=== PATIENT | male | born 1980 | race Caucasian/White ===

== ENCOUNTER 2016-05-12 02:36 | Inpatient (IN) | payer MEDICAID ==
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
[2016-05-12] MEDS ORDERED: ZIPRASIDONE 20 MG VIAL IM PRN (08:01)
[2016-05-12] MEDS ORDERED: MAG HYDROX/AL HYDROX/SIMETH 30 ML CUP PO PRN (08:01)
[2016-05-12] MEDS ORDERED: ACETAMINOPHEN TAB 325 MG TAB PO PRN (08:01)
[2016-05-12] MEDS ORDERED: MAGNESIUM HYDROXIDE 2,400 MG/10 ML CUP PO PRN (08:01)
[2016-05-12 10:22] VITALS: BMI 24.5
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
[2016-05-13 09:14] LABS: Basophils % (A) 0 %; CH 29.5; Eosinophils % (A) 0 %; HCT 44.4 % (39.0-53.0); HDW 3.05; HGB 14.6 gm/dL (13.0-17.5); Luc # (Auto) 0.16; Luc % (Auto) 2; Lymphocytes # (A) 1.5 k/uL (1.0-4.8); Lymphocytes % (A) 18 %; MCH 28.7 pg (25.0-35.0); MCHC 32.8 g/dL (31.0-37.0); MCV 87.2 fL (80.0-100.0); Mean Platelet Volume 10.4; Monocytes # (A) 0.3 k/uL (0-1.0); Monocytes % (A) 4 %; Neutrophils # (A) 6.3 k/uL (1.3-7.7); Neutrophils % (A) 76 %; RBC 5.09 m/uL (4.30-5.90); RDW 13.4 % (11.5-15.5); WBC 8.3 k/uL (3.8-10.6); WBC (Perox) 8.54
[2016-05-13 09:25] LABS: ALT 34 U/L (21-72); AST 25 U/L (17-59); Alkaline Phosphatase 51 U/L (38-126); Anion Gap 16 mmol/L; Blood Urea Nitrogen 18 mg/dL (9-20); Calcium 9.6 mg/dL (8.4-10.2); Carbon Dioxide 22 mmol/L (22-30); Chloride 103 mmol/L (98-107); Glucose 76 mg/dL (74-99); Non-African American GFR(MDRD) >60 (>60 ml/min/1.73 sqM); Potassium 4.1 mmol/L (3.5-5.1); Sodium 141 mmol/L (137-145); Total Bilirubin 1.1 mg/dL (0.2-1.3); Total Protein 7.4 g/dL (6.3-8.2)
[2016-05-13] MEDS: DULoxetine HCL 20 MG CAPSULE.DR PO SCH (09:41)
--- NOTE | 2016-05-13 16:58 | P.PN ---
Progress Note - Text Interval history: Patient seen in cross coverage today for Dr. Pearson. He relates he did take the Cymbalta this morning. He does not voice any adverse side effects. Talks about his history of having back pain with disc problems and the [place] does give him some benefit. He relates that he minimizes his use of [place]. He describes prior to admission he had the stressor of his telling him she was involved in another relationship and he had relapsed on alcohol use and taken some pills. Mental status exam: He is alert and cooperative with the interview. His mood he describes feeling stressed out, relays that he doesn't want to be in the hospital. He denies any thoughts of harm to self or others. He does not show any evidence of psychosis. He does not show any agitation. Plan: We'll maintain Cymbalta as current. He is also on trazodone as needed for sleep. We will monitor for any thoughts of harm to self. We'll continue to cover this patient for Dr. Pearson through the weekend.
[2016-05-13] MEDS: traZODone HCL 100 MG TAB PO PRN (20:21)
[2016-05-14] MEDS: LORazepam 1 MG TAB PO PRN ×2 (03:32→14:52)
[2016-05-14] MEDS: DULoxetine HCL 20 MG CAPSULE.DR PO SCH (09:12)
--- NOTE | 2016-05-14 11:11 | CONS ---
DATE OF CONSULTATION: 05/13/2016 I am covering for Dr. Evans. REASON FOR CONSULTATION: Advice regarding back pain and other multiple medical issues requested by the psychiatrist. HISTORY OF PRESENT ILLNESS: This 35-year-old gentleman with a past medical history of multiple medical problems including history of THC, history of back pain, history of degenerative joint disease being followed by Dr. Evans in the outpatient setting, also apparently has history of alcoholism also. The patient admitted by psychiatry evaluation to the psych floor. There is no history of fever, rigors. No history of headache, loss of consciousness. The patient complains of back pain. PAST MEDICAL HISTORY: History of degenerative joint disease, back pain, history of nicotine dependence, history of THC, history of alcohol. Medications prior to admission include: 1. Ambien 10 mg at bedtime p.r.n. 2. Hydrocodone 1 tablet q.6 p.r.n. 3. Amitriptyline 25 mg q.h.s. Allergies are none. FAMILY HISTORY: No history of heart disease or strokes in the family. SOCIAL HISTORY: History of alcohol. History of THC. History nicotine dependence previously. REVIEW OF SYSTEMS: ENT: No diminished hearing. No diminished vision. CARDIOVASCULAR: No angina. RESPIRATORY: No cough. GI: No nausea. : NO dysuria. NERVOUS SYSTEM: No numbness or weakness. ALLERGY/IMMUNOLOGY: No asthma or hayfever. MUSCULOSKELETAL: As mentioned earlier. HEMATOLOGY/ONCOLOGY: No history of anemia. ENDOCRINE: No history of diabetes. CONSTITUTIONAL: As mentioned earlier. DERMATOLOGY: Negative. RHEUMATOLOGY: Negative. PSYCHIATRY: As mentioned earlier. PHYSICAL EXAMINATION: The patient is alert and oriented x3. Pulse is 86, blood pressure 119/64, respirations 18, temperature 98.1, pulse ox 97% on room air. HEENT: Conjunctivae normal. Oral mucosa moist. NECK: No jugular venous distention. No carotid bruit. No lymph node enlargement. CARDIOVASCULAR: S1 and S2, muffled. RESPIRATORY: Breath sounds diminished at the bases. No rhonchi, no crackles. ABDOMEN: Soft, nontender. No pass palpable. LEGS: No edema, no swelling. NERVOUS SYSTEM: Higher function as mentioned. Moves all four limbs. No focal deficits. LYMPHATIC: No lymphadenopathy in the neck, axillae or groin. SKIN: No ulcer, rash or bleeding. LABS: Platelets are 110. Otherwise, TSH 0.059 and drug screen is positive for THC. ASSESSMENT: 1. Sinus tachycardia present on admission. 2. Thrombocytopenia possibly secondary to EtOH. 3. Reduced TSH 0.059. 4. Positive. THC. 5. History nicotine dependence. 6. History of EtOH. 7. History of back surgery and degenerative joint disease. 8. History of THC. RECOMMENDATIONS AND DISCUSSION: In this 35-year-old gentleman who presented with multiple medical issues, at this time I recommend to continue current medications, continue to monitor. I recommend a FT3 and FT4. I will be happy to review any abnormalities. Otherwise, I recommend continuing with the home medications. The patient was receiving [place] other than that we will follow the patient closely. Patient may be asked to follow up with Dr. Evans closely after discharge. Thank you, Dr. Albarran, for letting us participate in the care of this patient.
--- NOTE | 2016-05-14 17:28 | P.PN ---
Progress Note - Text Interval history: Patient is seen in cross coverage today in for Dr. Albarran. He reports that his sleep was pretty good until 3:30 in the morning it sounds like that it was on and off. It sounds like the trazodone definitely gave him some benefit. He does not seem to voice any adverse side effects with the Cymbalta. He says he is slowly accepting the situation with his marriage. Mental status exam: He is alert and cooperative with the interview. His speech is fluent, not rapid or pressured. His thought processes are organized. His affect overall is restricted. He describes his mood overall is doing better. He does not show any active evidence of psychosis. He does not show any agitation. Plan: We'll maintain current psychotropic medication regimen. Dr. Albarran resume care this patient starting tomorrow. Continue to monitor his mood, monitor for any medication side effects.
[2016-05-14] MEDS: traZODone HCL 100 MG TAB PO PRN (22:06)
--- NOTE | 2016-05-15 07:49 | P.CONS ---
History of Present Illness - Reason for Consult Consult date: 05/12/16 - Chief Complaint Possible suicidal ideation/marital stress. - History of Present Illness This is a consultation note a 35-year-old white male who is fairly well-known to my practice who states for the past several months he has been struggling with marital stress. Supposedly, he is admitted secondary to continued marital stress related to infidelity. He is now observed for this. He does take benzodiazepines secondary to significant anxiety. No illicit substance abuse stated. No significant nausea or vomiting. Review of Systems Constitutional: Denies chills, Denies fever Eyes: denies blurred vision, denies pain Ears, nose, mouth and throat: Denies headache, Denies sore throat Cardiovascular: Denies chest pain, Denies shortness of breath Respiratory: Denies cough Gastrointestinal: Denies abdominal pain, Denies diarrhea, Denies nausea, Denies vomiting Musculoskeletal: Denies myalgias Past Medical History Additional Past Medical History / Comment(s): back pain History of Any Multi-Drug Resistant Organisms: None Reported Past Surgical History: Back Surgery Past Psychological History: No Psychological Hx Reported Smoking Status: Current every day smoker Past Alcohol Use History: Occasional Past Drug Use History: Marijuana Medications and Allergies Home Medications Medication Instructions Recorded Confirmed Type Amitriptyline HCl [Amitriptyline 05/12/16 History HCl] Diazepam [Diazepam] 05/12/16 History Hydrocodone/Acetaminophen 05/12/16 History [Hydrocodon-Acetaminophen 5-325] Allergies Allergy/AdvReac Type Severity Reaction Status Date / Time No Known Allergies Allergy Verified 05/12/16 06:14 Physical Exam - Constitutional General appearance: no acute distress - EENT Eyes: EOMI - Neck Neck: no lymphadenopathy - Respiratory Respiratory: bilateral: CTA - Cardiovascular Rhythm: regular Heart sounds: normal: S1, S2 - Gastrointestinal General gastrointestinal: scaphoid, soft, no tenderness - Neurologic Neurologic: CNII-XII intact Assessment and Plan (1) Stress due to marital problems Status: Acute (2) Anxiety Status: Acute (3) Depression Status: Acute Plan: The patient is appropriately admitted to mental health unit for observation. We will defer appropriate inpatient treatment at this time. Otherwise, medically stable from history. We'll continue to follow. See orders otherwise.
[2016-05-15] MEDS: LORazepam 1 MG TAB PO PRN (08:08)
[2016-05-15] MEDS: DULoxetine HCL 20 MG CAPSULE.DR PO SCH (08:08)
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
[2016-05-15] MEDS: GABAPENTIN 100 MG CAP PO SCH ×2 (15:54→20:51)
[2016-05-15] MEDS: traZODone HCL 100 MG TAB PO PRN (20:52)
[2016-05-16] MEDS: LORazepam 0.5 MG TAB PO PRN (01:34)
[2016-05-16] MEDS: GABAPENTIN 100 MG CAP PO SCH ×3 (08:31→21:04)
[2016-05-16] MEDS ORDERED: DULoxetine HCL 30 MG CAPSULE.DR PO SCH (09:00)
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
[2016-05-16] MEDS: HYDROcodone/APAP 7.5-325MG 1 EACH TAB PO PRN (18:59)
[2016-05-17] MEDS: LORazepam 0.5 MG TAB PO PRN (00:21)
[2016-05-17 06:23] VITALS: RESP 18
[2016-05-17] MEDS ORDERED: traZODone HCL 100 MG TAB PO PRN (08:31)
[2016-05-17] MEDS ORDERED: GABAPENTIN 300 MG CAP PO SCH (09:00)
[2016-05-17] MEDS: hydrOXYzine PAMOATE 25 MG CAP PO PRN (09:02)
[2016-05-17] MEDS: DULoxetine HCL 60 MG CAPSULE.DR PO SCH (09:02)
--- NOTE | 2016-05-17 11:02 | P.PN ---
Progress Note - Text Interval history: Patient was seen in the office ,he reports restless sleep , slept only 4 hours ,up at 4 AM and not able to fall back asleep ,he reports racing thoughts at night but does feel that Seroquel is helping "MY MIND WAS NOT RACING TOO MUCH " He does not seem to voice any adverse side effects with the medications He says he is accepting the situation with his marriage , discussed his short term goal as he will stay with his mother and planning to look for new job Mental status exam: He is alert and cooperative with the interview. His speech is fluent, not rapid or pressured. His thought processes are organized. His affect overall is restricted. He describes his mood overall is doing better. He does not show any evidence of psychosis. He does not show any agitation.He denies any suicidal or homicidal ideation ,still having pain but "Less than before" Plan: Will increase Seroquel to restore his sleep ,discontinue PRN Ativan and given PRN Vistaril ,i explained to patient cross addiction and he verbalize understanding,continue cymbalta and neurontin Continue to monitor his mood, monitor for any medication side effects.
[2016-05-17] MEDS: GABAPENTIN 300 MG CAP PO SCH (14:11)
[2016-05-17] MEDS: HYDROcodone/APAP 7.5-325MG 1 EACH TAB PO PRN (17:36)
[2016-05-18 06:31] VITALS: BP 100/58; PULSE 71; TEMP 98.2
[2016-05-18] MEDS ORDERED: traZODone HCL 50 MG TAB PO PRN (08:23)
[2016-05-18] MEDS: GABAPENTIN 300 MG CAP PO SCH (08:37)
[2016-05-18] MEDS: DULoxetine HCL 60 MG CAPSULE.DR PO SCH (08:37)
[2016-05-18] MEDS: hydrOXYzine PAMOATE 25 MG CAP PO PRN (09:22)
--- NOTE | 2016-05-19 13:02 | DS ---
DATE OF ADMISSION: 05/12/2016 DATE OF DISCHARGE: 05/18/2016 CONSULT PHYSICIAN: Routine. CONSULTING PROVIDER: Dr. Kvng Evans. CONSULT REASON: For medical management. Do you want consulting provider notified? Yes. DISCHARGE DIAGNOSES: 1. 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 2. Chronic back pain. 3. Alcohol use disorder. BRIEF SUMMARY OF THE ADMISSION NOTES: The patient was admitted to the mental health unit from the emergency room on petition and clinical certificate. I saw the patient initially on May 12. At that time he was going through withdrawal symptoms Xanax and alcohol as he did admit that he was drinking heavy after 8 or 9 months of sobriety and he took up to 12 Xanax from his 's Xanax to "just to sleep." Patient was very angry and agitated and he stated that he just found out that his of 12 years has been cheating on him and that is why he did relapse on alcohol and he was getting upset and he did get into argument with her and the police were called by a neighbor. However, when the police came to the house, they found that the ( ) was on the stove and it was on. Patient denied that he did this. He stated "most probably I had blackout from the Xanax and alcohol." From the first day he stated that he is not suicidal or homicide, so I did pursue involuntary admission. For complete history and physical examination, please refer to my psychiatric history and physical exam. HOSPITAL COURSE: Patient was admitted to the mental health unit on involuntary basis. I did start him on CIWA for alcohol and also for benzodiazepine withdrawal. His urine drug screen was positive for opiate, benzodiazepine and marijuana. He did admit that he has been having prescription for opium pain medication and he stated that he started using marijuana to help his pain. Initially patient was uncooperative, but after a couple of days patient was more opened up and he talked in detail about his back pain and surgery that he did have in 2013 and it was not successful. Patient did agree to start Cymbalta for depression and his chronic pain. In addition also I did add Neurontin after reviewing the MRI of C4 and C5 and also L4 and L5. Patient met with his police detention attendant and he deferred to continue our recommendations. During his stay patient's did contact the unit and stated that she did file PPO against him and did send us a copy and we did give it to him. Patient was tearful, but he denied any suicidal or homicide ideation. Patient was seen also by Dr. Sims especially after the patient was complaining of severe neck pain and his recommendations that the patient to continue on Herriman p.r.n. to follow-up with Dr. Evans closely after discharge. Our social media job titles was in contact with patient's on daily basis, and also she did contact patient's mother who has been involved in his treatment and she stated that patient never had been aggressive or combative except when he does drink he gets very emotional. Patient was able to be weaned off benzodiazepines successfully and as he was complaining of trouble sleeping at night with high anxiety, I did give him Seroquel XR to help his sleep and also to help his anxiety through the day. Patient was able to tolerate the medication without having any side effect. Patient was able to participate in every group. His affect started to be more animated, bright affect, not tearful as before. He stated that he is focusing about getting better to have much better relationship with his only daughter who is 9 years of age and that he accepting the end of his marriage, even though he stated that he did have some marital problems last year in July 2015 and they did participate in marriage counseling for a couple of months. Patient was using Herriman as needed, no more than once or twice a day. He did participate in our session and was able to receive input regarding cognitive reframing and how to cope with ongoing stressors and we did discuss in very lengthy discussion about maintaining sobriety especially he is aware about the negative impact of alcohol and marijuana on his physical and mental status. Patient did agree to go stay with his mother on the discharge until his father comes from [place] on Sunday and he will move in with him. Patient is planning to find another job. He is willing to continue on the psychotropic medications and maintain sobriety and continue outpatient counseling. The mental status examination at the time of the discharge, patient is alert, seated very calmly, good eye contact. Grooming is adequate. Speech is spontaneous and coherent. Thought process is linear and goal directed. He reports no homicidal or suicide ideation, intent or plan. He does not feel hopeless or helpless. He demonstrated future goal regarding working on his sobriety and having better relationship with his daughter and trying to find another job. He was able to mention a number of things he wishes to accomplish after discharge, especially regarding his recovery and seeking pain management clinic for his chronic pain and trying to find another job with more of a sitting position. He denied any auditory or visual hallucination. He denied any idea of reference. No evidence of psychosis. There is no evidence of hypomania or golden. Insight and judgment improved. Cognitive ability has remained the same across the hospitalization. There is no verbal or physical aggression had been observed throughout his hospitalization. IMPRESSION: 1. Major depression disorder, recurrent, without psychotic feature in early remission. 2. Alcohol use disorder. 3. Cannabis use disorder. 4. Chronic pain syndrome, status post back surgery. PLAN: The patient will be discharged from the mental health today to return home to stay with his mother. Patient to continue on Cymbalta 60 mg daily, Neurontin 300 mg twice a day for pain. Patient to see Dr. Evans in 1 or 2 days regarding medical management of his chronic back pain. Patient was given prescription for Seroquel XR 100 mg for sleep and as augmentation for the Cymbalta; however, pharmacy stated that the patient's insurance is not covering, so we tried to fill preauthorization to be able to get coverage for his Seroquel XR but in the meantime, patient will be having at least 4 to 5 days supply from our pharmacy. Patient was instructed to maintain abstinence from alcohol and from marijuana. The patient is able to complete his activities of daily living and there is no eminent safety risk and he is appropriate for transition to the outpatient care. Patient was instructed to return to the emergency room if any acute safety concern. Patient's condition at the time of the discharge is stable.
== END 2016-05-18 09:46 | disposition home or self-care (01) | DRG 885 ==
LOC: EC 02:36 → 3MHU 07:55
PROVIDERS: ADMIT Psychiatry & Neurology Psychiatry; ATTEND Psychiatry & Neurology Psychiatry
DX: F33.9 Major depressive disorder, recurrent, unspecified (principal); D69.6 Thrombocytopenia, unspecified; F12.90 Cannabis use, unspecified, uncomplicated; F17.200 Nicotine dependence, unspecified, uncomplicated; F41.0 Panic disorder [episodic paroxysmal anxiety]; G89.4 Chronic pain syndrome; Z59.9 Problem related to housing and economic circumstances, unspecified; Z63.0 Problems in relationship with spouse or partner; Z79.899 Other long term (current) drug therapy
CPT/HCPCS: 80053; 80306; 82075; 84439; 84443; 84481; 85025; 93005; 99285

== ENCOUNTER 2017-03-20 05:39 | Emergency (ER) | payer MEDICAID, OTHER ==
[2017-03-20 05:46] VITALS: RESP 18
--- NOTE | 2017-03-20 06:25 | XR ---
EXAM: XR Right Knee, 3 views. CLINICAL HISTORY: Reason: Pain TECHNIQUE: Three views of the right knee. COMPARISON: No relevant prior studies available. FINDINGS: Bones: Unremarkable. No acute fracture. Joints: Unremarkable. No dislocation. Soft tissues: Mild prepatellar soft tissue swelling. No soft tissue gas. IMPRESSION: No acute osseous abnormality. Mild prepatellar soft tissue swelling.
--- NOTE | 2017-03-20 07:33 | ED ---
Lower Extremity Injury HPI - General Chief Complaint: Extremity Injury, Lower Stated Complaint: knee pain Time Seen by Provider: 03/20/17 07:00 Source: patient, RN notes reviewed Mode of arrival: ambulatory Limitations: no limitations - History of Present Illness Initial Comments: This is a 36-year-old male with a benign history who states he was sleeping on a low-dose eat several days ago and when he woke up he has some pain to lateral aspect of his right knee. He states he does have intermittent pain especially when trying to ambulate. He has no prior injury. He denies any fevers chills sweats or other symptoms he does however state that he wanted woke up this morning and a red spot on the lateral aspect of his right knee he also states he may be developing some cold symptoms with some sinus congestion. No cough no earaches sore throat rhinorrhea MD Complaint: knee injury - Related Data Previous Rx's Medication Instructions Recorded Ibuprofen 800 mg PO Q6HR PRN #20 tablet 03/20/17 Sulfamethox-Tmp 800-160Mg [Bactrim 2 each PO Q12HR #40 tab 03/20/17 DS 800-160 mg] Allergies Allergy/AdvReac Type Severity Reaction Status Date / Time No Known Allergies Allergy Verified 03/20/17 05:46 Review of Systems ROS Statement: Those systems with pertinent positive or pertinent negative responses have been documented in the HPI. ROS Other: All systems not noted in ROS Statement are negative. Past Medical History Past Medical History: No Reported History Additional Past Medical History / Comment(s): back pain History of Any Multi-Drug Resistant Organisms: None Reported Past Surgical History: Back Surgery Past Anesthesia/Blood Transfusion Reactions: No Reported Reaction Past Psychological History: Depression Smoking Status: Current every day smoker Past Alcohol Use History: Occasional Past Drug Use History: Marijuana General Exam - General Exam Comments Initial Comments: This is a well-developed well-nourished awake alert oriented times 3 male Limitations: no limitations General appearance: alert, in no apparent distress Head exam: Present: atraumatic, normocephalic, normal inspection Eye exam: Present: normal appearance, PERRL, EOMI. Absent: scleral icterus, conjunctival injection, periorbital swelling ENT exam: Present: normal exam, mucous membranes moist Neck exam: Present: normal inspection, full ROM. Absent: tenderness, meningismus, lymphadenopathy Respiratory exam: Present: normal lung sounds bilaterally. Absent: respiratory distress, wheezes, rales, rhonchi, stridor Cardiovascular Exam: Present: regular rate, normal rhythm, normal heart sounds. Absent: systolic murmur, diastolic murmur, rubs, gallop, clicks GI/Abdominal exam: Absent: distended, tenderness, guarding, rebound, rigid Extremities exam: Present: full ROM, tenderness, normal capillary refill, other (Examination of the right lower extremity demonstrates no obvious edema he does demonstrate full range of motion there is some mild tenderness over the lateral joint space no patellar ballottement or patellar tenderness. There is an area approximately 6-7 mm of erythema with increased localized temperature consistent with a localized cellulitis. No definite focal point is noted. No lymphangitis is noted. He states this started as a small streak.). Absent: pedal edema, joint swelling, calf tenderness Back exam: Present: normal inspection, full ROM. Absent: tenderness Neurological exam: Present: alert, oriented X3, CN II-XII intact Psychiatric exam: Present: normal affect, normal mood Skin exam: Present: warm, dry, intact, normal color. Absent: rash Course Vital Signs 03/20/17 05:43 Temperature 97.8 F Pulse Rate 76 Respiratory 18 Rate Blood Pressure 145/93 O2 Sat by Pulse 100 Oximetry Medical Decision Making - Medical Decision Making I did discuss the findings with the patient the presentation is consistent with a localized cellulitis to the lateral right knee as well as some ligamentous strain. The patient will be discharged on appropriate antibiotics as well as nonsteroidal anti-inflammatory treatment. - Radiology Data Radiology results: report reviewed (I did review the imaging and report no acute findings seen.), image reviewed Disposition Clinical Impression: Strain of right knee, Cellulitis Disposition: HOME SELF-CARE Condition: Good Instructions: Knee Sprain (ED), Cellulitis (ED) Prescriptions: Ibuprofen 800 mg PO Q6HR PRN #20 tablet PRN Reason: Pain Sulfamethox-Tmp 800-160Mg [Bactrim DS 800-160 mg] 2 each PO Q12HR #40 tab Referrals: Kvng Evans MD [Primary Care Provider] - 1-2 days
[2017-03-20 08:12] VITALS: BP 132/86; PULSE 87; TEMP 97.5
== END 2017-03-20 08:12 | disposition home or self-care (01) ==
LOC: EC 05:39
DX: S86.911A Strain of unspecified muscle(s) and tendon(s) at lower leg level, right leg, initial encounter (principal); L03.115 Cellulitis of right lower limb; F17.200 Nicotine dependence, unspecified, uncomplicated
CPT/HCPCS: 99283

== ENCOUNTER 2018-04-28 02:18 | Observation (INO) | payer OTHER ==
[2018-04-28] MEDS ORDERED: KETOROLAC 30 MG/ML 1 ML VIAL IVP STA (02:38)
[2018-04-28] MEDS ORDERED: SODIUM CHLORIDE 0.9% 1,000 ML IV STA (02:38)
--- NOTE | 2018-04-28 02:57 | ED ---
General Adult HPI - General Source: patient, family, RN notes reviewed Mode of arrival: ambulatory Limitations: no limitations <Cristino Grissom P - Last Filed: 04/28/18 04:12> <Arlnee Membreno P - Last Filed: 04/28/18 21:27> - General Chief complaint: Abdominal Pain Stated complaint: ABD PAIN Time Seen by Provider: 04/28/18 02:32 - History of Present Illness Initial comments: 37-year-old male presents to the emergency department for abdominal pain times one day. Patient states this started this morning after he ate breakfast. He states it was a generalized abdominal pain that was dull in nature. Patient states he thought he had ate something bad initially. He denies nausea vomiting or diarrhea. No fevers. Patient states that later in the evening it started to localize to the right side of his abdomen, mostly the right upper quadrant. He describes it as a stabbing pain. He denies any radiating pain. Denies chest pain. Patient denies any history of abdominal surgeries. Patient has no other complaints at this time including shortness of breath, chest pain, nausea or vomiting, headache, or visual changes. (Cristino Grissom) - Related Data Home Medications Medication Instructions Recorded Confirmed Acetaminophen-Codeine 300-30mg 1 tab PO Q4-6H PRN 04/28/18 04/28/18 [Tylenol w/codeine #3] DULoxetine HCL [Cymbalta] 60 mg PO DAILY 04/28/18 04/28/18 Naproxen 500 mg PO BID 04/28/18 04/28/18 Previous Rx's Medication Instructions Recorded Hydrocodone/Acetaminophen [[place] 1 tab PO Q6HR PRN 3 Days #10 tab 04/28/18 5-325] Allergies Allergy/AdvReac Type Severity Reaction Status Date / Time No Known Allergies Allergy Verified 04/28/18 08:16 Review of Systems ROS Other: All systems not noted in ROS Statement are negative. <Cristino Grissom - Last Filed: 04/28/18 04:12> ROS Other: All systems not noted in ROS Statement are negative. <Arlene Membreno P - Last Filed: 04/28/18 21:27> ROS Statement: Those systems with pertinent positive or pertinent negative responses have been documented in the HPI. Past Medical History Past Medical History: No Reported History Additional Past Medical History / Comment(s): back pain History of Any Multi-Drug Resistant Organisms: None Reported Past Surgical History: Back Surgery Past Anesthesia/Blood Transfusion Reactions: No Reported Reaction Past Psychological History: Depression Smoking Status: Current every day smoker Past Alcohol Use History: Occasional Past Drug Use History: Marijuana <Cristino Grissom P - Last Filed: 04/28/18 04:12> - Past Family History Father Family Medical History: Cancer, Myocardial Infarction ([place]) Additional Family Medical History / Comment(s): Prostate CA <MembrenoTarikArlene P - Last Filed: 04/28/18 21:27> General Exam Limitations: no limitations General appearance: alert, in no apparent distress Head exam: Present: atraumatic, normocephalic, normal inspection Eye exam: Present: normal appearance, PERRL, EOMI. Absent: scleral icterus, conjunctival injection, periorbital swelling ENT exam: Present: normal exam, mucous membranes moist Neck exam: Present: normal inspection, full ROM. Absent: tenderness, meningismus, lymphadenopathy Respiratory exam: Present: normal lung sounds bilaterally. Absent: respiratory distress, wheezes, rales, rhonchi, stridor Cardiovascular Exam: Present: regular rate, normal rhythm, normal heart sounds. Absent: systolic murmur, diastolic murmur, rubs, gallop, clicks GI/Abdominal exam: Present: soft, tenderness (RLQ/RUQ, no left-sided abdominal tenderness), guarding (tenderness with guarding noted in the RUQ and RLQ), normal bowel sounds. Absent: distended, rebound, rigid Neurological exam: Present: alert, oriented X3, CN II-XII intact Psychiatric exam: Present: normal affect, normal mood <Cristino Grissom P - Last Filed: 04/28/18 04:12> Vital Signs 04/28/18 04/28/18 02:25 05:01 Temperature 97.6 F Pulse Rate 73 58 L Respiratory 20 16 Rate Blood Pressure 141/86 118/86 O2 Sat by Pulse 98 98 Oximetry Medical Decision Making - Lab Data Result diagrams: 04/28/18 03:21 04/28/18 03:21 <Cristino Grissom P - Last Filed: 04/28/18 04:12> - Lab Data Result diagrams: 04/28/18 03:21 04/28/18 03:21 <Arlene Membreno - Last Filed: 04/28/18 21:27> - Medical Decision Making 37-year-old male with right-sided abdominal pain times one day. Patient states the pain is mostly associated the right upper quadrant. However on exam patient does have significant right upper and lower quadrant tenderness. White count elevated to 11.0. CMP unremarkable. Given right lower quadrant pain CT was ordered to rule out appendicitis. On CAT scan there does appear to be a dilated appendix to 13 cm with wall thickening, surrounded by small amount of mesenteric inflammatory change. No fevers or chills. Patient updated on results. Dr. Jefferson plans for OR around 8 AM. (Cristino Grissom) Saw patient, patient with tenderness to the right lower quadrant mild leukocytosis and computed tomography scan findings consistent with acute appendicitis. I discussed patient care with Dr. Leal as well as anesthesia instrument/control technician who will plan for OR at 8 AM. I updated the patient on this plan. Patient to remain nothing by mouth, IV fluids infusing, when necessary antiemetics and pain medications. First dose of Unasyn was given in the emergency department. (Arlene Membreno) - Lab Data Lab Results 04/28/18 04/28/18 04/28/18 Range/Units 03:21 03:21 03:21 WBC 11.0 H (3.8-10.6) k/uL RBC 4.80 (4.30-5.90) m/uL Hgb 14.0 (13.0-17.5) gm/dL Hct 42.5 (39.0-53.0) % MCV 88.5 (80.0-100.0) fL MCH 29.2 (25.0-35.0) pg MCHC 33.1 (31.0-37.0) g/dL RDW 13.5 (11.5-15.5) % Plt Count 107 L (150-450) k/uL Neutrophils % 76 % Lymphocytes % 17 % Monocytes % 5 % Eosinophils % 1 % Basophils % 0 % Neutrophils # 8.4 H (1.3-7.7) k/uL Lymphocytes # 1.8 (1.0-4.8) k/uL Monocytes # 0.5 (0-1.0) k/uL Eosinophils # 0.2 (0-0.7) k/uL Basophils # 0.0 (0-0.2) k/uL Sodium 138 (137-145) mmol/L Potassium 4.1 (3.5-5.1) mmol/L Chloride 105 (98-107) mmol/L Carbon Dioxide 27 (22-30) mmol/L Anion Gap 6 mmol/L BUN 20 (9-20) mg/dL Creatinine 0.73 (0.66-1.25) mg/dL Est GFR (CKD-EPI)AfAm >90 (>60 ml/min/1.73 sqM) Est GFR (CKD-EPI)NonAf >90 (>60 ml/min/1.73 sqM) Glucose 90 (74-99) mg/dL Calcium 9.0 (8.4-10.2) mg/dL Total Bilirubin 0.4 (0.2-1.3) mg/dL AST 19 (17-59) U/L ALT 28 (21-72) U/L Alkaline Phosphatase 51 (38-126) U/L Total Protein 6.7 (6.3-8.2) g/dL Albumin 4.1 (3.5-5.0) g/dL Amylase 48 (30-110) U/L Lipase 47 (23-300) U/L Urine Color Yellow Urine Appearance Clear (Clear) Urine pH 5.5 (5.0-8.0) Ur Specific [place] 1.016 (1.001-1.035) Urine Protein Negative (Negative) Urine Glucose (UA) Negative (Negative) Urine Ketones Negative (Negative) Urine Blood Negative (Negative) Urine Nitrite Negative (Negative) Urine Bilirubin Negative (Negative) Urine Urobilinogen <2.0 (<2.0) mg/dL Ur Leukocyte Esterase Negative (Negative) Disposition Is patient prescribed a controlled substance at d/c from ED?: No Time of Disposition: 04:14 <Cristino Grissom P - Last Filed: 04/28/18 04:12> <Arlene Membreno P - Last Filed: 04/28/18 21:27> Clinical Impression: Appendicitis Disposition: ADMITTED IP TO THIS HOSP Condition: Fair
[2018-04-28 03:31] LABS: Appearance,Urine Clear (Clear); Basophils % (A) 0 %; Bilirubin,Urine Negative (Negative); Blood,Urine Negative (Negative); Color,Urine Yellow; Eosinophils # (A) 0.2 k/uL (0-0.7); Eosinophils % (A) 1 %; Glucose,Urine (UA) Negative (Negative); HCT 42.5 % (39.0-53.0); Ketones,Urine Negative (Negative); Leukocyte Esterase,Urine Negative (Negative); Lymphocytes # (A) 1.8 k/uL (1.0-4.8); Lymphocytes % (A) 17 %; MCH 29.2 pg (25.0-35.0); MCHC 33.1 g/dL (31.0-37.0); MCV 88.5 fL (80.0-100.0); Monocytes # (A) 0.5 k/uL (0-1.0); Monocytes % (A) 5 %; Neutrophils # (A) 8.4 k/uL (1.3-7.7); Neutrophils % (A) 76 %; Nitrite,Urine Negative (Negative); PH, Urine 5.5 (5.0-8.0); Platelet Count 107 k/uL (150-450); Protein,Urine Negative (Negative); RDW 13.5 % (11.5-15.5); Specific Gravity,Urine 1.016 (1.001-1.035); Urobilinogen,Urine <2.0 mg/dL (<2.0)
[2018-04-28 03:40] LABS: ALT 28 U/L (21-72); AST 19 U/L (17-59); Albumin 4.1 g/dL (3.5-5.0); Alkaline Phosphatase 51 U/L (38-126); Amylase 48 U/L (30-110); Anion Gap 6 mmol/L; Blood Urea Nitrogen 20 mg/dL (9-20); Carbon Dioxide 27 mmol/L (22-30); Chloride 105 mmol/L (98-107); Glucose 90 mg/dL (74-99); Lipase 47 U/L (23-300); Potassium 4.1 mmol/L (3.5-5.1); Sodium 138 mmol/L (137-145); Total Bilirubin 0.4 mg/dL (0.2-1.3); Total Protein 6.7 g/dL (6.3-8.2)
--- NOTE | 2018-04-28 03:55 | CT ---
EXAM: CT Abdomen and Pelvis With Intravenous Contrast CLINICAL HISTORY: abdominal pain TECHNIQUE: Axial computed tomography images of the abdomen and pelvis with intravenous contrast. CTDI is 15.8 mGy and DLP is 753.6 mGy-cm. This CT exam was performed using one or more of the following dose reduction techniques: automated exposure control, adjustment of the mA and/or kV according to patient size, and/or use of iterative reconstruction technique. Coronal and sagittal reconstructions are performed COMPARISON: No relevant prior studies available. FINDINGS: Lung bases: Unremarkable. No mass. No consolidation. ABDOMEN: Liver: Subcentimeter hypodensities in the liver, too small to characterize. Subcentimeter hypodensities in right lobe of liver, too small to characterize. Gallbladder and bile ducts: Sludge in the gallbladder. No calcified stones. No ductal dilation. Pancreas: Unremarkable. No mass. No ductal dilation. Spleen: Unremarkable. No splenomegaly. Adrenals: Unremarkable. No mass. Kidneys and ureters: Unremarkable. No solid mass. No hydronephrosis. Stomach and bowel: Unremarkable. No obstruction. No mucosal thickening. PELVIS: Appendix: The appendix is dilated to 13 mm with wall thickening, surrounded by small amount of mesenteric inflammatory change proximally indicate appendicitis. Bladder: Unremarkable. No mass. Reproductive: Unremarkable as visualized. ABDOMEN and PELVIS: Intraperitoneal space: Trace of right posterior free pelvic fluid is likely related to appendicitis. No free air. Bones/joints: Grade 1 anterolisthesis of L4 on L5 with bilateral old pars defect of L4. No acute fracture. No dislocation. Soft tissues: Unremarkable. Vasculature: Unremarkable. No abdominal aortic aneurysm. Lymph nodes: Unremarkable. No enlarged lymph nodes. IMPRESSION: 1. appendicitis. No perforation or abscess. 2. Sludge in the gallbladder. <MYCVCSECTION> Critical Value Communications 04/28/18 04:05 Verify Receipt Verified receipt with HEATHER Milan, given to RICHARD Scott on 04/28 04:04 (-05:00)
[2018-04-28] MEDS ORDERED: AMPICILLIN-SULBACTAM 3 GM in SODIUM CHLORIDE 0.9% 100 ML IVPB STA (04:06)
[2018-04-28] MEDS ORDERED: NALOXONE 0.4 MG/ML 1 ML VIAL IV PRN (04:15)
[2018-04-28] MEDS ORDERED: ONDANSETRON 4 MG/2 ML VIAL IVP PRN (04:15)
[2018-04-28] MEDS ORDERED: MORPHINE SULFATE 4 MG/ML SYRINGE IV PRN (04:15)
[2018-04-28] MEDS ORDERED: SODIUM CHLORIDE 0.9% 1,000 ML IV SCH (04:15)
[2018-04-28] MEDS ORDERED: HYDROmorphone 0.5 MG/0.5 ML SYRINGE IVP PRN (07:57)
[2018-04-28] MEDS ORDERED: LACTATED RINGERS 1,000 ML IV SCH (08:00)
[2018-04-28] MEDS ORDERED: ONDANSETRON 4 MG/2 ML VIAL ONE (08:09)
[2018-04-28] MEDS ORDERED: KETOROLAC 30 MG/ML 1 ML VIAL ONE (08:09)
[2018-04-28] MEDS ORDERED: PROPOFOL 10 MG/ML 20 ML VIAL IV ONE (08:09)
[2018-04-28] MEDS ORDERED: DEXAMETHASONE SOD PHOS (MDV) 100 MG/10 ML VIAL ONE (08:09)
[2018-04-28] MEDS ORDERED: MIDAZOLAM 2 MG/2 ML VIAL ONE (08:09)
[2018-04-28] MEDS ORDERED: GLYCOPYRROLATE 0.2 MG/ML 2 ML VIAL ONE (08:09)
[2018-04-28] MEDS ORDERED: LIDOCAINE 1% INJ 10MG/ML (20 ML MDV) ONE (08:09)
[2018-04-28] MEDS ORDERED: ROCURONIUM BROMIDE 10 MG/ML 10 ML VIAL IV ONE (08:09)
[2018-04-28] MEDS ORDERED: fentaNYL (PF) 50 MCG/ML 2 ML AMP ONE (08:09)
[2018-04-28] MEDS ORDERED: NEOSTIGMINE 1 MG/ML 10 ML VIAL ONE (08:09)
[2018-04-28] MEDS ORDERED: ceFAZolin 1,000 MG VIAL ONE (08:09)
[2018-04-28] MEDS ORDERED: IV FLUID CONTINUATION 600 ML IV ONE (08:11)
--- NOTE | 2018-04-28 08:12 | P.GSHP ---
History of Present Illness H&P Date: 04/28/18 Chief Complaint: Acute appendicitis Patient comes in the ER last night with complaints of right upper quadrant pain. Yesterday earlier today the patient had diffuse lower abdominal discomfort but seemed to localize to the right side. He was nauseated. No fevers. White blood cell count slightly elevated. CAT scan shows acute appendicitis. No history of similar events. - Review of Systems Comment: The patient denies any acute changes in vision or hearing, no dysphagia or odynophagia, no chest pain or shortness of breath, no dysuria or hematuria, no headache, no runny nose, no rectal bleeding or melena, no unexplained weight loss Past Medical History Past Medical History: No Reported History Additional Past Medical History / Comment(s): back pain History of Any Multi-Drug Resistant Organisms: None Reported Past Surgical History: Back Surgery Past Anesthesia/Blood Transfusion Reactions: No Reported Reaction Past Psychological History: Depression Smoking Status: Current every day smoker Past Alcohol Use History: Occasional Past Drug Use History: Marijuana - Past Family History Father Family Medical History: Cancer, Myocardial Infarction ([place]) Additional Family Medical History / Comment(s): Prostate CA Medications and Allergies Home Medications Medication Instructions Recorded Confirmed Type Ibuprofen 800 mg PO Q6HR PRN #20 tablet 03/20/17 Rx Sulfamethox-Tmp 800-160Mg [Bactrim 2 each PO Q12HR #40 tab 03/20/17 Rx DS 800-160 mg] Allergies Allergy/AdvReac Type Severity Reaction Status Date / Time No Known Allergies Allergy Verified 04/28/18 02:28 Surgical - Exam Vital Signs Temp Pulse Resp BP Pulse Ox 97.6 F 73 20 141/86 98 04/28/18 02:25 04/28/18 02:25 04/28/18 02:25 04/28/18 02:25 04/28/18 02:25 Physical exam: General: Well-developed, well-nourished HEENT: Normocephalic, sclerae nonicteric Abdomen: Right lower quadrant tenderness, nondistended Extremities: No edema Neuro: Alert and oriented Results - Labs 04/28/18 03:21 04/28/18 03:21 Abnormal Lab Results - Last 24 Hours (Table) 04/28/18 Range/Units 03:21 WBC 11.0 H (3.8-10.6) k/uL Plt Count 107 L (150-450) k/uL Neutrophils # 8.4 H (1.3-7.7) k/uL Diabetes panel 04/28/18 Range/Units 03:21 Sodium 138 (137-145) mmol/L Potassium 4.1 (3.5-5.1) mmol/L Chloride 105 (98-107) mmol/L Carbon Dioxide 27 (22-30) mmol/L BUN 20 (9-20) mg/dL Creatinine 0.73 (0.66-1.25) mg/dL Glucose 90 (74-99) mg/dL Calcium 9.0 (8.4-10.2) mg/dL AST 19 (17-59) U/L ALT 28 (21-72) U/L Alkaline Phosphatase 51 (38-126) U/L Total Protein 6.7 (6.3-8.2) g/dL Albumin 4.1 (3.5-5.0) g/dL Calcium panel 04/28/18 Range/Units 03:21 Calcium 9.0 (8.4-10.2) mg/dL Albumin 4.1 (3.5-5.0) g/dL Pituitary panel 04/28/18 Range/Units 03:21 Sodium 138 (137-145) mmol/L Potassium 4.1 (3.5-5.1) mmol/L Chloride 105 (98-107) mmol/L Carbon Dioxide 27 (22-30) mmol/L BUN 20 (9-20) mg/dL Creatinine 0.73 (0.66-1.25) mg/dL Glucose 90 (74-99) mg/dL Calcium 9.0 (8.4-10.2) mg/dL Adrenal panel 04/28/18 Range/Units 03:21 Sodium 138 (137-145) mmol/L Potassium 4.1 (3.5-5.1) mmol/L Chloride 105 (98-107) mmol/L Carbon Dioxide 27 (22-30) mmol/L BUN 20 (9-20) mg/dL Creatinine 0.73 (0.66-1.25) mg/dL Glucose 90 (74-99) mg/dL Calcium 9.0 (8.4-10.2) mg/dL Total Bilirubin 0.4 (0.2-1.3) mg/dL AST 19 (17-59) U/L ALT 28 (21-72) U/L Alkaline Phosphatase 51 (38-126) U/L Total Protein 6.7 (6.3-8.2) g/dL Albumin 4.1 (3.5-5.0) g/dL Assessment and Plan (1) Appendicitis Narrative/Plan: Will proceed with laparoscopic, possible open appendectomy at this time. Risks of bleeding, infection, bladder bowel and ureteral injury, abscess, conversion to an open procedure reviewed. He understands and wishes to proceed. Current Visit: Yes Status: Acute Code(s): K37 - UNSPECIFIED APPENDICITIS SNOMED Code(s): 99072116
[2018-04-28] MEDS ORDERED: SODIUM CHLORIDE 0.9% 50 ML with ceFAZolin 2,000 MG IV ONE ×2 (08:35)
[2018-04-28] MEDS ORDERED: BUPIVACAINE (PF) 0.25% 30 ML VIAL SQ ONE (08:41)
[2018-04-28] MEDS ORDERED: LACTATED RINGERS 1,000 ML IV ONE (08:42)
--- NOTE | 2018-04-28 09:03 | P.OP ---
Date of Procedure: 04/28/18 Procedure(s) Performed: PREOPERATIVE DIAGNOSIS: Acute appendicitis POSTOPERATIVE DIAGNOSIS: Same PROCEDURE: Laparoscopic appendectomy SURGEON: Li EBL: Total ANESTHESIA: General COMPLICATIONS: None OPERATIVE PROCEDURE: The patient was brought and placed on the operating table in the supine position. The patient was placed under general anesthesia. The abdomen was prepped and draped in the usual sterile fashion. A small vertical infraumbilical incision was made. The fascia was retracted anteriorly with Hao forceps. The Veress needle was advanced into the perineal cavity. The saline drop test was normal. Insufflation took place to 15 mmHg. A 5 mm trocar was then placed. An additional 5 mm suprapubic trocar was placed under direct visualization as well as a 12 mm left lower quadrant trocar under direct visualization. The appendix was inspected. It was acutely inflamed. The mesoappendix was dissected. The base of the appendix was divided using a linear 45 mm intestinal stapler. The mesentery itself was divided using 2 separate loads of the hunter stapler. The area was then irrigated. No further purulence or bleeding was seen. The appendix was brought out of the peritoneal cavity through the left lower quadrant trocar site using an Endo Catch bag. The fascia at the 12 mm site was closed using a [id number] 0 Vicryl stitch. The skin at all 3 sites was closed using 4-0 Monocryl sutures. Steri- Strips and sterile dressings then applied. DISPOSITION: Stable to recovery room
[2018-04-28 09:16] VITALS: RESP 18
[2018-04-28] MEDS ORDERED: ACETAMINOPHEN TAB 325 MG TAB PO PRN (09:26)
[2018-04-28] MEDS: HYDROcodone/APAP 5-325MG 1 EACH TAB PO PRN ×2 (09:58→14:25)
[2018-04-28] MEDS ORDERED: AMPICILLIN-SULBACTAM 3 GM in SODIUM CHLORIDE 0.9% 100 ML IVPB SCH (12:00)
[2018-04-28 12:09] VITALS: BP 116/78; PULSE 61; TEMP 98.1
--- NOTE | 2018-04-28 12:13 | P.CON ---
Consult Note - . Consult date: 04/28/18 Assessment/Plan:: Reason for consultation-medical management, leukocytosis. History of present illness-there is a 37-year-old gentleman with past medical history significant for back pain comes in for right low quadrant abdominal pain. He was diagnosed with appendicitis. He already had surgery done this morning. Hospitalist service consulted for medical management. His lab works does show leukocytosis and patient denies any shortness of breath of cough as of now. He said that he was feeling congested and was having some cough yesterday but today feels great. He does not complain of any fever or chills, no chest pain racing heart, no nausea and vomiting, or diarrhea constipation, no tingling numbness on in the extremities, no itch or rash. Patient is denying any complaints at this moment. Past medical history-back pain, disc herniation Past surgical history-back surgery Social history-patient says that he smokes every day and has been doing that for a while, he drinks alcohol socially, uses marijuana. Family history significant for prostate cancer in father and history of [place] Physical exam Vitals-stable at this time On exam, alert and oriented x3. HEENT: Conjunctivae normal. eyes normal. NECK: No JVD. No thyroid enlargement. No LNs CARDIOVASCULAR: S1, S2 muffled. No murmur RESPIRATION: Breath sounds diminished in the bases. No rhonchi or crackles. No bronchial breathing. ABDOMEN: Soft, tender status post surgery in the right lower quadrant area. No guarding. no masses palpable. No ascites, No hepatosplenomegaly.Bowel sounds heard. LEGS: No edema. no swelling NERVOUS SYSTEM: Cranial N 2-12 grossly normal. Moves all 4 limbs. No focal deficits. No sensory deficit. No signs of cerebellar dysfucntion. Skin: no ulcer no rash Assessment - Leukocytosis - Status post appendectomy for acute appendicitis - History of chronic back pain Plan - Patient is admitted to general surgery - Hospitalist service consulted for medical management. Patient is symptom leukocytosis which probably at the stasis reactive due to the pain. Patient does not look sick, has no complaints of any shortness of breath of cough is not complaining of any fever or chills, no source of infection anywhere else in the body We will monitor the WBCs - Pain control as per the primary service - DVT prophylaxis as per primary service - We will order for CBC in the a.m. - We'll continue to follow the patient along with you
[2018-04-28] MEDS ORDERED: HEPARIN SODIUM,PORCINE 5,000 UNIT/ML 1 ML VIAL SQ SCH (16:00)
== END 2018-04-28 16:09 | disposition home or self-care (01) ==
LOC: EC 02:18 → 4SSUR 04:15
PROVIDERS: ADMIT Surgery; ATTEND Surgery
DX: K35.80 Unspecified acute appendicitis (principal); F32.9 Major depressive disorder, single episode, unspecified; M54.9 Dorsalgia, unspecified; G89.29 Other chronic pain; F17.200 Nicotine dependence, unspecified, uncomplicated; Z82.49 Family history of ischemic heart disease and other diseases of the circulatory system; Z80.42 Family history of malignant neoplasm of prostate
CPT/HCPCS: 96361; 96374; 99285; 36415; 88304; 80053; 82150; 83690; 85025; 81003; 87040; 74177; G0378; J2250; J2270; J2710; J2405; J0690 ×2; J2001; J3010; J1885; J0295; J1100; J2704; Q9967

== ENCOUNTER 2018-06-09 10:54 | Emergency (ER) | payer OTHER ==
[2018-06-09] MEDS ORDERED: ONDANSETRON 4 MG/2 ML VIAL IVP STA (11:24)
[2018-06-09] MEDS ORDERED: PANTOPRAZOLE 40 MG/10 ML VIAL IVP STA (11:24)
[2018-06-09] MEDS ORDERED: SODIUM CHLORIDE 0.9% 1,000 ML IV STA ×2 (11:24)
[2018-06-09] MEDS ORDERED: MORPHINE SULFATE 2 MG/ML SYRINGE IVP ONE (11:32)
[2018-06-09 11:56] LABS: Basophils % (A) 0 %; Eosinophils # (A) 0.1 k/uL (0-0.7); Eosinophils % (A) 2 %; HCT 45.5 % (39.0-53.0); HGB 14.8 gm/dL (13.0-17.5); Lymphocytes # (A) 1.3 k/uL (1.0-4.8); Lymphocytes % (A) 23 %; MCH 28.5 pg (25.0-35.0); MCHC 32.6 g/dL (31.0-37.0); MCV 87.2 fL (80.0-100.0); Mean Platelet Volume 9.3; Monocytes # (A) 0.3 k/uL (0-1.0); Monocytes % (A) 5 %; Neutrophils % (A) 69 %; Platelet Count 118 k/uL (150-450); RBC 5.21 m/uL (4.30-5.90); RDW 13.7 % (11.5-15.5); WBC 5.8 k/uL (3.8-10.6)
[2018-06-09 12:06] LABS: ALT 34 U/L (21-72); AST 24 U/L (17-59); Albumin 4.7 g/dL (3.5-5.0); Alkaline Phosphatase 59 U/L (38-126); Amylase 70 U/L (30-110); Anion Gap 8 mmol/L; Blood Urea Nitrogen 13 mg/dL (9-20); Calcium 9.4 mg/dL (8.4-10.2); Carbon Dioxide 25 mmol/L (22-30); Chloride 106 mmol/L (98-107); Glucose 99 mg/dL (74-99); Lipase 76 U/L (23-300); Potassium 4.5 mmol/L (3.5-5.1); Sodium 139 mmol/L (137-145); Total Bilirubin 0.6 mg/dL (0.2-1.3); Total Protein 7.3 g/dL (6.3-8.2)
[2018-06-09 12:19] LABS: Appearance,Urine Clear (Clear); Bilirubin,Urine Negative (Negative); Blood,Urine Negative (Negative); Color,Urine Yellow; Glucose,Urine (UA) Negative (Negative); Ketones,Urine Negative (Negative); Leukocyte Esterase,Urine Negative (Negative); Nitrite,Urine Negative (Negative); PH, Urine 5.5 (5.0-8.0); Protein,Urine Negative (Negative); Specific Gravity,Urine 1.019 (1.001-1.035); Urobilinogen,Urine <2.0 mg/dL (<2.0)
[2018-06-09 12:30] LABS: INR 0.9 (<1.2); Partial Thromboplastin Time 24.3 sec (22.0-30.0); Prothrombin Time 9.9 sec (9.0-12.0)
--- NOTE | 2018-06-09 13:55 | XR ---
EXAMINATION TYPE: XR KUB , 3 VIEWS DATE OF EXAM ORDERED: 06/09/2018 HISTORY: Pain. COMPARISON: Previous study dated 07/28/2007. FINDINGS: The lung bases are clear. Within the abdomen, the abdominal gas pattern is normal. There is no evidence of obstruction or free air. No unusual calcifications are seen. IMPRESSION: NO ACUTE INTRA-ABDOMINAL ABNORMALITY.
[2018-06-09] MEDS ORDERED: SODIUM CHLORIDE 0.9% 1,000 ML IV ONE (14:11)
--- NOTE | 2018-06-09 14:14 | ED ---
Abdominal Pain HPI - General Chief Complaint: Abdominal Pain Stated Complaint: Stomach pain Time Seen by Provider: 06/09/18 11:05 Source: patient, RN notes reviewed, old records reviewed Mode of arrival: ambulatory Limitations: no limitations - History of Present Illness Initial Comments: Patient is a 37-year-old male presents return today with upper abdominal painting a black stool. History of appendectomy one month ago by Dr. Jefferson. Patient states he's been having some left-sided abdominal pain. At this time Patient denies any fevers or chills. He reports nausea. - Related Data Home Medications Medication Instructions Recorded Confirmed Acetaminophen-Codeine 300-30mg 1 tab PO Q4-6H PRN 04/28/18 04/28/18 [Tylenol w/codeine #3] DULoxetine HCL [Cymbalta] 60 mg PO DAILY 04/28/18 04/28/18 Naproxen 500 mg PO BID 04/28/18 04/28/18 Previous Rx's Medication Instructions Recorded Hydrocodone/Acetaminophen [[place] 1 tab PO Q6HR PRN 3 Days #10 tab 04/28/18 5-325] Famotidine [Pepcid] 40 mg PO DAILY #20 tab 06/09/18 Ondansetron [Zofran ODT] 4 mg PO Q8HR #20 tab 06/09/18 Allergies Allergy/AdvReac Type Severity Reaction Status Date / Time No Known Allergies Allergy Verified 06/09/18 11:12 Review of Systems ROS Statement: Those systems with pertinent positive or pertinent negative responses have been documented in the HPI. ROS Other: All systems not noted in ROS Statement are negative. Past Medical History Past Medical History: No Reported History Additional Past Medical History / Comment(s): back pain History of Any Multi-Drug Resistant Organisms: None Reported Past Surgical History: Appendectomy, Back Surgery Past Anesthesia/Blood Transfusion Reactions: No Reported Reaction Past Psychological History: Depression Smoking Status: Current every day smoker Past Alcohol Use History: Occasional Past Drug Use History: Marijuana - Past Family History Father Family Medical History: Cancer, Myocardial Infarction ([place]) Additional Family Medical History / Comment(s): Prostate CA General Exam - General Exam Comments Initial Comments: Well-appearing 37-year-old male. Alert and oriented. No distress. Limitations: no limitations General appearance: alert Head exam: Present: atraumatic, normocephalic, normal inspection Eye exam: Present: normal appearance, PERRL, EOMI. Absent: scleral icterus, conjunctival injection, periorbital swelling ENT exam: Present: normal exam, mucous membranes moist Neck exam: Present: normal inspection. Absent: tenderness, meningismus, lymphadenopathy Respiratory exam: Present: normal lung sounds bilaterally. Absent: respiratory distress, wheezes, rales, rhonchi, stridor Cardiovascular Exam: Present: regular rate, normal rhythm, normal heart sounds. Absent: systolic murmur, diastolic murmur, rubs, gallop, clicks GI/Abdominal exam: Present: soft, normal bowel sounds. Absent: distended, tenderness, guarding, rebound, rigid Extremities exam: Present: normal inspection, full ROM, normal capillary refill. Absent: tenderness, pedal edema, joint swelling, calf tenderness Back exam: Present: normal inspection Neurological exam: Present: alert, oriented X3, CN II-XII intact Psychiatric exam: Present: normal affect, normal mood Skin exam: Present: warm, dry, intact, normal color. Absent: rash Course Vital Signs 06/09/18 11:12 Temperature 98 F Pulse Rate 95 Respiratory 18 Rate Blood Pressure 137/93 O2 Sat by Pulse 98 Oximetry Medical Decision Making - Medical Decision Making 37-year-old male presents presented with abdominal pain and nausea. He complains of black stools. Stool sample at this time is negative. He complains of diffuse abdominal tenderness. Recent history of appendectomy. At this time patient's blood work vital signs are stable. Reevaluation he is complaining of pain tenderness. due to recent surgery CT scan completed for any concerns related to surgery. This time is no evidence of any acute findings. Patient be discharged at this time with follow-up with PCP. Questions answered. - Lab Data Result diagrams: 06/09/18 11:40 06/09/18 11:40 Lab Results 06/09/18 06/09/18 06/09/18 Range/Units 11:40 11:40 11:40 WBC 5.8 (3.8-10.6) k/uL RBC 5.21 (4.30-5.90) m/uL Hgb 14.8 (13.0-17.5) gm/dL Hct 45.5 (39.0-53.0) % MCV 87.2 (80.0-100.0) fL MCH 28.5 (25.0-35.0) pg MCHC 32.6 (31.0-37.0) g/dL RDW 13.7 (11.5-15.5) % Plt Count 118 L (150-450) k/uL Neutrophils % 69 % Lymphocytes % 23 % Monocytes % 5 % Eosinophils % 2 % Basophils % 0 % Neutrophils # 4.0 (1.3-7.7) k/uL Lymphocytes # 1.3 (1.0-4.8) k/uL Monocytes # 0.3 (0-1.0) k/uL Eosinophils # 0.1 (0-0.7) k/uL Basophils # 0.0 (0-0.2) k/uL PT (9.0-12.0) sec INR (<1.2) APTT (22.0-30.0) sec Sodium 139 (137-145) mmol/L Potassium 4.5 (3.5-5.1) mmol/L Chloride 106 (98-107) mmol/L Carbon Dioxide 25 (22-30) mmol/L Anion Gap 8 mmol/L BUN 13 (9-20) mg/dL Creatinine 0.66 (0.66-1.25) mg/dL Est GFR (CKD-EPI)AfAm >90 (>60 ml/min/1.73 sqM) Est GFR (CKD-EPI)NonAf >90 (>60 ml/min/1.73 sqM) Glucose 99 (74-99) mg/dL Plasma Lactic Acid Evan 0.9 (0.7-2.0) mmol/L Calcium 9.4 (8.4-10.2) mg/dL Total Bilirubin 0.6 (0.2-1.3) mg/dL AST 24 (17-59) U/L ALT 34 (21-72) U/L Alkaline Phosphatase 59 (38-126) U/L Total Protein 7.3 (6.3-8.2) g/dL Albumin 4.7 (3.5-5.0) g/dL Amylase 70 (30-110) U/L Lipase 76 (23-300) U/L Urine Color Urine Appearance (Clear) Urine pH (5.0-8.0) Ur Specific [place] (1.001-1.035) Urine Protein (Negative) Urine Glucose (UA) (Negative) Urine Ketones (Negative) Urine Blood (Negative) Urine Nitrite (Negative) Urine Bilirubin (Negative) Urine Urobilinogen (<2.0) mg/dL Ur Leukocyte Esterase (Negative) Stool Occult Blood (Negative) Blood Type Blood Type Recheck Antibody Screen Spec Expiration Date 06/09/18 06/09/18 06/09/18 Range/Units 11:40 11:40 11:40 WBC (3.8-10.6) k/uL RBC (4.30-5.90) m/uL Hgb (13.0-17.5) gm/dL Hct (39.0-53.0) % MCV (80.0-100.0) fL MCH (25.0-35.0) pg MCHC (31.0-37.0) g/dL RDW (11.5-15.5) % Plt Count (150-450) k/uL Neutrophils % % Lymphocytes % % Monocytes % % Eosinophils % % Basophils % % Neutrophils # (1.3-7.7) k/uL Lymphocytes # (1.0-4.8) k/uL Monocytes # (0-1.0) k/uL Eosinophils # (0-0.7) k/uL Basophils # (0-0.2) k/uL PT 9.9 (9.0-12.0) sec INR 0.9 (<1.2) APTT 24.3 (22.0-30.0) sec Sodium (137-145) mmol/L Potassium (3.5-5.1) mmol/L Chloride (98-107) mmol/L Carbon Dioxide (22-30) mmol/L Anion Gap mmol/L BUN (9-20) mg/dL Creatinine (0.66-1.25) mg/dL Est GFR (CKD-EPI)AfAm (>60 ml/min/1.73 sqM) Est GFR (CKD-EPI)NonAf (>60 ml/min/1.73 sqM) Glucose (74-99) mg/dL Plasma Lactic Acid Evan (0.7-2.0) mmol/L Calcium (8.4-10.2) mg/dL Total Bilirubin (0.2-1.3) mg/dL AST (17-59) U/L ALT (21-72) U/L Alkaline Phosphatase (38-126) U/L Total Protein (6.3-8.2) g/dL Albumin (3.5-5.0) g/dL Amylase (30-110) U/L Lipase (23-300) U/L Urine Color Yellow Urine Appearance Clear (Clear) Urine pH 5.5 (5.0-8.0) Ur Specific [place] 1.019 (1.001-1.035) Urine Protein Negative (Negative) Urine Glucose (UA) Negative (Negative) Urine Ketones Negative (Negative) Urine Blood Negative (Negative) Urine Nitrite Negative (Negative) Urine Bilirubin Negative (Negative) Urine Urobilinogen <2.0 (<2.0) mg/dL Ur Leukocyte Esterase Negative (Negative) Stool Occult Blood (Negative) Blood Type A Positive Blood Type Recheck CABO Indicated Antibody Screen NEGATIVE Spec Expiration Date 06/12/2018 - 233906/09/18 Range/Units 11:57 WBC (3.8-10.6) k/uL RBC (4.30-5.90) m/uL Hgb (13.0-17.5) gm/dL Hct (39.0-53.0) % MCV (80.0-100.0) fL MCH (25.0-35.0) pg MCHC (31.0-37.0) g/dL RDW (11.5-15.5) % Plt Count (150-450) k/uL Neutrophils % % Lymphocytes % % Monocytes % % Eosinophils % % Basophils % % Neutrophils # (1.3-7.7) k/uL Lymphocytes # (1.0-4.8) k/uL Monocytes # (0-1.0) k/uL Eosinophils # (0-0.7) k/uL Basophils # (0-0.2) k/uL PT (9.0-12.0) sec INR (<1.2) APTT (22.0-30.0) sec Sodium (137-145) mmol/L Potassium (3.5-5.1) mmol/L Chloride (98-107) mmol/L Carbon Dioxide (22-30) mmol/L Anion Gap mmol/L BUN (9-20) mg/dL Creatinine (0.66-1.25) mg/dL Est GFR (CKD-EPI)AfAm (>60 ml/min/1.73 sqM) Est GFR (CKD-EPI)NonAf (>60 ml/min/1.73 sqM) Glucose (74-99) mg/dL Plasma Lactic Acid Evan (0.7-2.0) mmol/L Calcium (8.4-10.2) mg/dL Total Bilirubin (0.2-1.3) mg/dL AST (17-59) U/L ALT (21-72) U/L Alkaline Phosphatase (38-126) U/L Total Protein (6.3-8.2) g/dL Albumin (3.5-5.0) g/dL Amylase (30-110) U/L Lipase (23-300) U/L Urine Color Urine Appearance (Clear) Urine pH (5.0-8.0) Ur Specific [place] (1.001-1.035) Urine Protein (Negative) Urine Glucose (UA) (Negative) Urine Ketones (Negative) Urine Blood (Negative) Urine Nitrite (Negative) Urine Bilirubin (Negative) Urine Urobilinogen (<2.0) mg/dL Ur Leukocyte Esterase (Negative) Stool Occult Blood Negative (Negative) Blood Type Blood Type Recheck Antibody Screen Spec Expiration Date - Radiology Data Radiology results: report reviewed CT shows small basis that are unchanged. Cholecystectomy. getting process seen. No evidence of abscess improvement of atelectasis at the lung bases compared old exam. Disposition Clinical Impression: Abdominal pain Disposition: HOME SELF-CARE Condition: Good Instructions (If sedation given, give patient instructions): Abdominal Pain (ED) Additional Instructions: Patient advised to follow-up with your primary care doctor. Take medication as prescribed. Return to the emergency department if any alarming signs or symptoms occur. Recommend follow-up with surgeon as well. Prescriptions: Famotidine [Pepcid] 40 mg PO DAILY #20 tab Ondansetron [Zofran ODT] 4 mg PO Q8HR #20 tab Is patient prescribed a controlled substance at d/c from ED?: No Referrals: Kvng Evans MD [Primary Care Provider] - 1-2 days Time of Disposition: 15:24
--- NOTE | 2018-06-09 15:03 | CT ---
EXAMINATION TYPE: CT abdomen pelvis w con DATE OF EXAM: 06/09/2018 COMPARISON: 04/28/2018 HISTORY: Post OP Appendectomy. Generalized pain CT DLP: 684.9 mGycm Automated exposure control for dose reduction was used. TECHNIQUE: Helical acquisition of images was performed from the lung bases through the pelvis. CONTRAST: Performed without Oral Contrast and with IV Contrast, patient injected with 100 mL of Isovue 300. FINDINGS: There is some minimal subsegmental atelectasis at the lung bases. Heart size is normal. There is no p ericardial effusion. There is no pleural effusion. There are a few cysts in the liver that measure less than 1 cm. Spleen appears normal. There is no pa ncreatic mass. Gallbladder appears normal. There is no adrenal mass. Stomach appears normal. Kidneys show satisfactory contrast opacification. T here is no hydronephrosis. There are clips from cholecystectomy. There is no free fluid in the abdome n and pelvis. Bladder distends smoothly. There is some high attenuation material in the large bowel c onsistent with previous contrast or medication. There is no mesenteric edema. There is no inguinal hernia. There is no evidence of free air. There is no ascites. There is a first-degree L4-5 spondylolisthesis. There is bilateral L4 spondylolysis. The re is no compression fracture. Bony pelvis is intact. IMPRESSION: SMALL HEPATIC CYSTS UNCHANGED. CHOLECYSTECTOMY. NO COMPLICATING PROCESS SEEN. NO EVIDENCE OF AN ABSCE SS. L4-5 SPONDYLOLISTHESIS. THERE IS IMPROVEMENT IN SUBSEGMENTAL ATELECTASIS AT THE LUNG BASES COMPAR ED TO LAST EXAM.
[2018-06-09 15:26] VITALS: TEMP 97.9
[2018-06-09 15:53] VITALS: BP 108/91; PULSE 62; RESP 18
== END 2018-06-09 15:53 | disposition home or self-care (01) ==
LOC: EC 10:54
DX: R10.9 Unspecified abdominal pain (principal); R11.0 Nausea; R10.817 Generalized abdominal tenderness; F32.9 Major depressive disorder, single episode, unspecified; F17.200 Nicotine dependence, unspecified, uncomplicated; Z79.899 Other long term (current) drug therapy; Z79.1 Long term (current) use of non-steroidal anti-inflammatories (NSAID); Z90.89 Acquired absence of other organs
CPT/HCPCS: 36415; 86900; 86901; 80053; 82150; 83605; 83690; 85025; 85610; 85730; 86850; 82272; 81003; 74018; 74177; 99285; 96374; 96375 ×2; 96361 ×4; J2405; J2270; C9113; Q9967

== ENCOUNTER 2019-04-07 07:33 | Inpatient (IN) | payer OTHER ==
[2019-04-07] MEDS ORDERED: SODIUM CHLORIDE 0.9% 1,000 ML IV STA (07:54)
[2019-04-07] MEDS ORDERED: HYDROmorphone 1 MG/ML 1 ML SYRINGE IVP STA (07:55)
--- NOTE | 2019-04-07 07:59 | ED ---
General Adult HPI - General Chief complaint: Chest Pain Stated complaint: Right-sided chest discomfort Time Seen by Provider: 04/07/19 07:51 Source: patient, RN notes reviewed Mode of arrival: ambulatory Limitations: no limitations - History of Present Illness Initial comments: Patient is a pleasant 38-year-old male presenting to the emergency Department with complaints of right-sided chest discomfort. Onset of symptoms was yesterday and symptoms progressed throughout the day. Symptoms are still bothering him this morning. Discomfort is right lateral chest. Patient does have history of previous injury there in the distant past. Patient states he does a lot of moving and bending at work and may have hurt it however does not recall a specific event. Patient states discomfort is increased with movement and deep breaths. Patient states he does feel a little bit short of breath. No fevers. No other area of concern. - Related Data Home Medications Medication Instructions Recorded Confirmed Acetaminophen-Codeine 300-30mg 1 tab PO Q4-6H PRN 04/28/18 04/28/18 [Tylenol w/codeine #3] DULoxetine HCL [Cymbalta] 60 mg PO DAILY 04/28/18 04/28/18 Naproxen 500 mg PO BID 04/28/18 04/28/18 Previous Rx's Medication Instructions Recorded Hydrocodone/Acetaminophen [[place] 1 tab PO Q6HR PRN 3 Days #10 tab 04/28/18 5-325] Famotidine [Pepcid] 40 mg PO DAILY #20 tab 06/09/18 Ondansetron [Zofran ODT] 4 mg PO Q8HR #20 tab 06/09/18 Allergies Allergy/AdvReac Type Severity Reaction Status Date / Time No Known Allergies Allergy Verified 04/07/19 07:40 Review of Systems ROS Statement: Those systems with pertinent positive or pertinent negative responses have been documented in the HPI. ROS Other: All systems not noted in ROS Statement are negative. Constitutional: Denies: fever Eyes: Denies: eye pain ENT: Denies: ear pain Respiratory: Reports: as per HPI. Denies: cough Cardiovascular: Reports: as per HPI, chest pain (Right lateral chest) Endocrine: Denies: fatigue Gastrointestinal: Denies: abdominal pain Genitourinary: Denies: dysuria Musculoskeletal: Denies: back pain Skin: Denies: rash Neurological: Denies: weakness Past Medical History Past Medical History: No Reported History Additional Past Medical History / Comment(s): back pain History of Any Multi-Drug Resistant Organisms: None Reported Past Surgical History: Appendectomy, Back Surgery Past Anesthesia/Blood Transfusion Reactions: No Reported Reaction Past Psychological History: Depression Smoking Status: Current every day smoker Past Alcohol Use History: Occasional Past Drug Use History: None Reported - Past Family History Father Family Medical History: Cancer, Myocardial Infarction ([place]) Additional Family Medical History / Comment(s): Prostate CA General Exam Limitations: no limitations General appearance: alert, in no apparent distress Head exam: Present: normocephalic Eye exam: Present: normal appearance Neck exam: Present: normal inspection. Absent: tenderness Respiratory exam: Present: normal lung sounds bilaterally, chest wall tenderness (Right lateral chest wall) Cardiovascular Exam: Present: regular rate, normal rhythm Expanded Peripheral pulses: 2+: Radial (R), Radial (L), Posterior Tibialis (R), Posterior Tibialis (L) GI/Abdominal exam: Present: soft. Absent: distended, tenderness, guarding, rebound Extremities exam: Present: normal inspection. Absent: pedal edema, calf tenderness Back exam: Present: normal inspection. Absent: tenderness, vertebral tenderness Neurological exam: Present: alert Psychiatric exam: Present: normal affect, normal mood Skin exam: Present: normal color Course Vital Signs 04/07/19 04/07/19 04/07/19 07:42 08:18 09:00 Temperature 98.3 F Pulse Rate 88 64 51 L Respiratory 18 18 18 Rate Blood Pressure 138/85 94/53 119/76 O2 Sat by Pulse 97 98 100 Oximetry 04/07/19 04/07/19 09:30 10:00 Temperature Pulse Rate 56 L 54 L Respiratory 19 17 Rate Blood Pressure 122/79 115/77 O2 Sat by Pulse 97 99 Oximetry EKG Findings - EKG Comments: EKG Findings:: Normal sinus rhythm 72. NC 132. QRS 94. QT 372. QTC 47. Normal axis. LVH criteria. Prominent T waves. Medical Decision Making - Medical Decision Making Patient reevaluated and updated. Case discussed with Dr. Gallegos, who will admit with consults for Dr. nunez and cardiothoracic surgeon - Lab Data Result diagrams: 04/07/19 08:06 04/07/19 08:06 Lab Results 04/07/19 04/07/19 04/07/19 Range/Units 08:06 08:06 08:06 WBC 7.5 (3.8-10.6) k/uL RBC 5.12 (4.30-5.90) m/uL Hgb 14.9 (13.0-17.5) gm/dL Hct 45.2 (39.0-53.0) % MCV 88.4 (80.0-100.0) fL MCH 29.1 (25.0-35.0) pg MCHC 32.9 (31.0-37.0) g/dL RDW 13.5 (11.5-15.5) % Plt Count 115 L (150-450) k/uL Neutrophils % 76 % Lymphocytes % 16 % Monocytes % 5 % Eosinophils % 1 % Basophils % 1 % Neutrophils # 5.7 (1.3-7.7) k/uL Lymphocytes # 1.2 (1.0-4.8) k/uL Monocytes # 0.4 (0-1.0) k/uL Eosinophils # 0.0 (0-0.7) k/uL Basophils # 0.0 (0-0.2) k/uL PT 9.7 (9.0-12.0) sec INR 0.9 (<1.2) APTT 24.5 (22.0-30.0) sec D-Dimer 0.89 H (<0.60) mg/L FEU Sodium 136 L (137-145) mmol/L Potassium 4.1 (3.5-5.1) mmol/L Chloride 101 (98-107) mmol/L Carbon Dioxide 29 (22-30) mmol/L Anion Gap 6 mmol/L BUN 14 (9-20) mg/dL Creatinine 0.80 (0.66-1.25) mg/dL Est GFR (CKD-EPI)AfAm >90 (>60 ml/min/1.73 sqM) Est GFR (CKD-EPI)NonAf >90 (>60 ml/min/1.73 sqM) Glucose 115 H (74-99) mg/dL Calcium 9.5 (8.4-10.2) mg/dL Magnesium 2.0 (1.6-2.3) mg/dL Total Bilirubin 1.5 H (0.2-1.3) mg/dL AST 53 (17-59) U/L ALT 34 (4-49) U/L Alkaline Phosphatase 87 (38-126) U/L Creatine Kinase 781 H (55-170) U/L Troponin I (0.000-0.034) ng/mL Total Protein 7.8 (6.3-8.2) g/dL Albumin 4.7 (3.5-5.0) g/dL 04/07/19 Range/Units 08:06 WBC (3.8-10.6) k/uL RBC (4.30-5.90) m/uL Hgb (13.0-17.5) gm/dL Hct (39.0-53.0) % MCV (80.0-100.0) fL MCH (25.0-35.0) pg MCHC (31.0-37.0) g/dL RDW (11.5-15.5) % Plt Count (150-450) k/uL Neutrophils % % Lymphocytes % % Monocytes % % Eosinophils % % Basophils % % Neutrophils # (1.3-7.7) k/uL Lymphocytes # (1.0-4.8) k/uL Monocytes # (0-1.0) k/uL Eosinophils # (0-0.7) k/uL Basophils # (0-0.2) k/uL PT (9.0-12.0) sec INR (<1.2) APTT (22.0-30.0) sec D-Dimer (<0.60) mg/L FEU Sodium (137-145) mmol/L Potassium (3.5-5.1) mmol/L Chloride (98-107) mmol/L Carbon Dioxide (22-30) mmol/L Anion Gap mmol/L BUN (9-20) mg/dL Creatinine (0.66-1.25) mg/dL Est GFR (CKD-EPI)AfAm (>60 ml/min/1.73 sqM) Est GFR (CKD-EPI)NonAf (>60 ml/min/1.73 sqM) Glucose (74-99) mg/dL Calcium (8.4-10.2) mg/dL Magnesium (1.6-2.3) mg/dL Total Bilirubin (0.2-1.3) mg/dL AST (17-59) U/L ALT (4-49) U/L Alkaline Phosphatase (38-126) U/L Creatine Kinase (55-170) U/L Troponin I <0.012 (0.000-0.034) ng/mL Total Protein (6.3-8.2) g/dL Albumin (3.5-5.0) g/dL - Radiology Data Radiology results: report reviewed (Computed tomography scan of the chest shows right apical pneumothorax, less than 5%. Rib fractures foreign 5 anterior in the right with subcutaneous emphysema. Right middle lobe pulmonary laceration and pulmonary contusion and small hemopneumothorax), image reviewed (Chest x-ray shows rib fracture right fifth and right basilar consolidation.) Disposition Clinical Impression: Rib fractures, Pneumothorax, Hemopneumothorax on right, Contusion of lung Disposition: ADMITTED IP TO THIS [facility] Condition: Serious Is patient prescribed a controlled substance at d/c from ED?: No Referrals: Kvng Evans MD [Primary Care Provider] - 1-2 days Decision Time: 10:41
[2019-04-07 08:21] LABS: Basophils % (A) 1 %; Eosinophils % (A) 1 %; HCT 45.2 % (39.0-53.0); HGB 14.9 gm/dL (13.0-17.5); Lymphocytes # (A) 1.2 k/uL (1.0-4.8); Lymphocytes % (A) 16 %; MCH 29.1 pg (25.0-35.0); MCHC 32.9 g/dL (31.0-37.0); MCV 88.4 fL (80.0-100.0); Monocytes # (A) 0.4 k/uL (0-1.0); Monocytes % (A) 5 %; Neutrophils # (A) 5.7 k/uL (1.3-7.7); Neutrophils % (A) 76 %; Platelet Count 115 k/uL (150-450); RBC 5.12 m/uL (4.30-5.90); RDW 13.5 % (11.5-15.5); WBC 7.5 k/uL (3.8-10.6)
[2019-04-07 08:37] LABS: INR 0.9 (<1.2); Partial Thromboplastin Time 24.5 sec (22.0-30.0); Prothrombin Time 9.7 sec (9.0-12.0)
[2019-04-07 08:41] LABS: ALT 34 U/L (4-49); AST 53 U/L (17-59); African American GFR (CKD) >90 (>60 ml/min/1.73 sqM); Albumin 4.7 g/dL (3.5-5.0); Alkaline Phosphatase 87 U/L (38-126); Anion Gap 6 mmol/L; Blood Urea Nitrogen 14 mg/dL (9-20); Calcium 9.5 mg/dL (8.4-10.2); Carbon Dioxide 29 mmol/L (22-30); Chloride 101 mmol/L (98-107); Creatine Kinase 781 U/L (55-170); Glucose 115 mg/dL (74-99); Non-African American GFR(CKD) >90 (>60 ml/min/1.73 sqM); Potassium 4.1 mmol/L (3.5-5.1); Sodium 136 mmol/L (137-145); Total Bilirubin 1.5 mg/dL (0.2-1.3); Total Protein 7.8 g/dL (6.3-8.2)
[2019-04-07 08:53] LABS: D-Dimer 0.89 mg/L FEU (<0.60)
--- NOTE | 2019-04-07 09:02 | XR ---
EXAMINATION TYPE: XR chest 2V DATE OF EXAM: 04/07/2019 COMPARISON: 09/01/2014 HISTORY: Chest pain TECHNIQUE: Frontal and lateral views of the chest are obtained. FINDINGS: New right basilar consolidation with adjacent rib fracture and subcutaneous emphysema. Soumya y trace right apical pneumothorax is suspected. Left lung remains well aerated. Cardiomediastinal remy houette is upper limits of normal size. IMPRESSION: Minimally displaced anterior right rib 5 fracture with adjacent subcutaneous emphysema a nd right basilar consolidation, likely pulmonary contusion. Probable trace right apical pneumothorax that could be confirmed with inspiratory and expiratory x-ray or CT thorax.
--- NOTE | 2019-04-07 10:11 | CT ---
EXAMINATION TYPE: CT angio chest DATE OF EXAM: 04/07/2019 COMPARISON: NONE HISTORY: Chest pain, PE CT DLP: 359.2 mGycm. Automated Exposure Control for Dose Reduction was Utilized. CONTRAST: CTA scan of the thorax is performed without and with IV Contrast, patient injected with 100 ml mL of Isovue 370, pulmonary embolism protocol. MIP Images are created on CT scanner and reviewed. FINDINGS: LUNGS: There is a small right hemopneumothorax with apical pneumothorax and punctate focus of air inf eriorly at the lung bases. Adjacent compressive atelectasis is seen of both lung bases with right bas ilar opacity along the hemidiaphragm and multifocal right middle lobe opacities. One of the opacities is linear and contains air compatible with a pulmonary laceration adjacent to the minimally displace d rib fractures. MEDIASTINUM: There is satisfactory enhancement of the pulmonary artery and its branches, there is no CT evidence for pulmonary embolism. There are no greater than 1 cm hilar or mediastinal lymph nodes. No cardiomegaly or pericardial effusion is seen. Mild coronary artery calcifications. Scant resid ual thymic tissue in the anterior superior mediastinum. OTHER: Too small to accurately characterize hepatic lesion is seen on image 133 measuring 4 mm border ing in segment 7 and 8. Additional segment 8 2 small to accurately characterize lesion on image 130 m easures 5 mm. Mild multilevel degenerative disc disease of the spine. Bilateral symmetric probable gy necomastia. IMPRESSION: 1. Trace right apical pneumothorax estimated at less than 5% of the total lung volume. However there is a right middle lobe pulmonary laceration and multifocal right basilar pulmonary contusions with lo culated focus of air at the right lung base within a small hemopneumothorax. 2. Minimally displaced anterior right rib 4 and 5 fractures are seen with adjacent subcutaneous emphy sema.
[2019-04-07] MEDS ORDERED: NALOXONE 0.4 MG/ML 1 ML VIAL IV PRN ×2 (10:41→10:43)
[2019-04-07] MEDS ORDERED: ACETAMINOPHEN TAB 500 MG TAB PO PRN (13:07)
[2019-04-07] MEDS: KETOROLAC 30 MG/ML 1 ML VIAL IVP SCH ×3 (13:40→23:28)
[2019-04-07] MEDS: SODIUM CHLORIDE 0.9% 1,000 ML IV SCH ×2 (13:54→23:30)
--- NOTE | 2019-04-07 14:35 | P.GSCN ---
History of Present Illness Consult date: 04/07/19 Reason for Consult: Right hemopneumothorax, pulmonary contusion and rib fractures Requesting physician: Glenn Lomeli History of present illness: This is a 38-year-old gentleman who is followed by Dr. Aislinn Evans on an ou tpatient basis. He is a past medical history significant for chronic lower back pain status post back surgery in 2013, family history of early onset coronary artery disease with his dad having his first myocardial infarction at age 46, remote history of seizure disorder at age 5 and at age 10, current chronic tobacco abuse and occasional marijuana and alcohol use. The patient presented to the emergency department here at [facility] this morning with complaints of pain to his right lateral chest. He reports that yesterday he started having some mild discomfort to his right chest which progressively got worse into the evening. He states that the pain was worse laying flat than when sitting up. He denies any recent fevers, chills, headache, syncope, cough or recent trauma to his right chest. Due to his presenting symptoms a chest x- ray was completed which demonstrated minimally displaced anterior right fifth rib fracture with adjacent subcutaneous emphysema and right basilar consolidation, likely pulmonary contusion. It also demonstrated a trace right apical pneumothorax. For further evaluation a CTA of his chest was completed which showed a trace right apical pneumothorax estimated at less than 5%, right middle lobe pulmonary laceration and multifocal right basilar pulmonary contusions with loculated focus of air at the right lung base within a small hemopneumothorax. It also showed minimally displaced anterior right rib 4 and 5 fractures. A 12-lead EKG was also completed which showed normal sinus rhythm heart rate 72 BPM. Due to the patient's presenting symptoms and findings on his chest x-ray and CTA of his chest a consult was placed to Dr. Mustapha Nelson from cardiothoracic surgery for further evaluation and treatment recommendations. Review of Systems A 14 point review systems was completed and was negative except as mentioned in the HPI. Past Medical History Past Medical History: Seizure Disorder Additional Past Medical History / Comment(s): Lower back pain, occasional bilateral elbow tendonitis, past R knee torn menisus, one seizure at age 5 and another at age 10 yrs. History of Any Multi-Drug Resistant Organisms: None Reported Past Surgical History: Appendectomy, Back Surgery Additional Past Surgical History / Comment(s): Low back surgery, L lower lip benign mass. Past Anesthesia/Blood Transfusion Reactions: No Reported Reaction Past Psychological History: No Psychological Hx Reported Smoking Status: Current every day smoker Past Alcohol Use History: Rare Past Drug Use History: Marijuana (Occasional use) - Past Family History Father Family Medical History: Cancer, Myocardial Infarction ([place]) Additional Family Medical History / Comment(s): Prostate CA. Father had a [place] at the age of 46yrs. He is living. Mother Family Medical History: Dementia Medications and Allergies Home Medications Medication Instructions Recorded Confirmed Type DULoxetine HCL [Cymbalta] 60 mg PO HS 04/28/18 04/07/19 History Allergies Allergy/AdvReac Type Severity Reaction Status Date / Time No Known Allergies Allergy Verified 04/07/19 11:11 Surgical - Exam Vital Signs Temp Pulse Resp BP Pulse Ox 98.3 F 88 18 138/85 97 04/07/19 07:42 04/07/19 07:42 04/07/19 07:42 04/07/19 07:42 04/07/19 07:42 - General Tenderness to his right lateral chest well developed, well nourished, no distress - Eyes PERRL, normal ocular movement - ENT normal pinna, normal nares, normal mucosa, no hearing loss, no congestion, poor mcfp - Neck Neck is supple, no lymphadenopathy. no masses, no bruits, trachea midline, no venous distension - Respiratory Lungs sounds are essentially clear throughout, diminished to his right lower lobe. Respirations are symmetrical and nonlabored. Oxygen saturation is 96% on room air. - Cardiovascular Regular rhythm and rate. S1 and S2 present, negative for S3, gallop or murmur. No edema present. Bedside telemetry showing normal sinus rhythm heart rate 74. - Abdomen Abdomen is soft, nontender and nondistended. Active bowel sounds present all 4 abdominal quadrants. No guarding or rigidity. No organomegaly appreciated. - Genitourinary Deferred - Rectum Deferred - Integumentary Skin is warm and dry. No clubbing or cyanosis is present. no rash, no growths, no abnormal pigmentation - Neurologic Cranial nerves II through XII intact. normal coordination, normal sensation - Musculoskeletal normal gait, normal posture - Psychiatric oriented to time, oriented to person, oriented to place, speech is normal, m riley intact Results - Labs 04/07/19 08:06 02/10/20 08:06 Abnormal Lab Results - Last 24 Hours (Table) 04/07/19 04/07/19 04/07/19 Range/Units 08:06 08:06 08:06 Plt Count 115 L (150-450) k/uL D-Dimer 0.89 H (<0.60) mg/L FEU Sodium 136 L (137-145) mmol/L Glucose 115 H (74-99) mg/dL Total Bilirubin 1.5 H (0.2-1.3) mg/dL Creatine Kinase 781 H (55-170) U/L Diabetes panel 04/07/19 Range/Units 08:06 Sodium 136 L (137-145) mmol/L Potassium 4.1 (3.5-5.1) mmol/L Chloride 101 (98-107) mmol/L Carbon Dioxide 29 (22-30) mmol/L BUN 14 (9-20) mg/dL Creatinine 0.80 (0.66-1.25) mg/dL Glucose 115 H (74-99) mg/dL Calcium 9.5 (8.4-10.2) mg/dL AST 53 (17-59) U/L ALT 34 (4-49) U/L Alkaline Phosphatase 87 (38-126) U/L Total Protein 7.8 (6.3-8.2) g/dL Albumin 4.7 (3.5-5.0) g/dL Calcium panel 04/07/19 Range/Units 08:06 Calcium 9.5 (8.4-10.2) mg/dL Albumin 4.7 (3.5-5.0) g/dL Pituitary panel 04/07/19 Range/Units 08:06 Sodium 136 L (137-145) mmol/L Potassium 4.1 (3.5-5.1) mmol/L Chloride 101 (98-107) mmol/L Carbon Dioxide 29 (22-30) mmol/L BUN 14 (9-20) mg/dL Creatinine 0.80 (0.66-1.25) mg/dL Glucose 115 H (74-99) mg/dL Calcium 9.5 (8.4-10.2) mg/dL Adrenal panel 04/07/19 Range/Units 08:06 Sodium 136 L (137-145) mmol/L Potassium 4.1 (3.5-5.1) mmol/L Chloride 101 (98-107) mmol/L Carbon Dioxide 29 (22-30) mmol/L BUN 14 (9-20) mg/dL Creatinine 0.80 (0.66-1.25) mg/dL Glucose 115 H (74-99) mg/dL Calcium 9.5 (8.4-10.2) mg/dL Total Bilirubin 1.5 H (0.2-1.3) mg/dL AST 53 (17-59) U/L ALT 34 (4-49) U/L Alkaline Phosphatase 87 (38-126) U/L Total Protein 7.8 (6.3-8.2) g/dL Albumin 4.7 (3.5-5.0) g/dL - Imaging Chest x-ray: report reviewed, image reviewed CT scan - chest: report reviewed, image reviewed Assessment and Plan Assessment: 1. Right anterior rib fractures fourth and fifth ribs 2. Right pneumothorax 3. Contusion of right lung 4. Chronic lower back pain 5. Remote history of seizures at age 5 and at age 10 6. Current every day smoker 7. Occasional marijuana and alcohol use Plan: The patient was seen and examined at his bedside in the emergency room Department. He is in no acute distress. His chart diagnostics were reviewed and his case was discussed in detail with Dr. Mustapha Nelson from cardiothoracic surgery. No surgical intervention is warranted at this time. We will continue surveillance on his daily chest x-rays. Toradol 15 mg IV every 6 hours for pain has been added as well as acetaminophen 1000 mg by mouth every 6 hours when necessary pain. Encourage use of his incentive spirometry every hour while awake. The importance of smoking cessation was discussed with the patient. Medical management per primary care service. Pulmonary management per Dr. Pena's recommendations. Thank you for this consult and we look forward to following with you in the care of this patient, more recommendations to follow based on patient's clinical course. Time with Patient: Greater than 30
[2019-04-07] MEDS ORDERED: IPRATROPIUM-ALBUTEROL 3 ML NEB INHALATION PRN (15:19)
[2019-04-07] MEDS ORDERED: HEPARIN SODIUM,PORCINE 5,000 UNIT/ML 1 ML VIAL SQ SCH (16:00)
[2019-04-07] MEDS: HYDROmorphone 1 MG/ML 1 ML SYRINGE IVP PRN (20:24)
[2019-04-07] MEDS: FAMOTIDINE 20 MG TAB PO SCH (20:24)
[2019-04-07] MEDS: IPRATROPIUM-ALBUTEROL 3 ML NEB INHALATION SCH (20:28)
[2019-04-07] MEDS: DULoxetine HCL 60 MG CAPSULE.DR PO SCH (20:34)
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
[2019-04-08] MEDS: KETOROLAC 30 MG/ML 1 ML VIAL IVP SCH (06:18)
[2019-04-08 06:57] LABS: ALT 24 U/L (4-49); AST 32 U/L (17-59); African American GFR (CKD) >90 (>60 ml/min/1.73 sqM); Albumin 3.5 g/dL (3.5-5.0); Alkaline Phosphatase 60 U/L (38-126); Anion Gap 2 mmol/L; Blood Urea Nitrogen 21 mg/dL (9-20); Calcium 8.5 mg/dL (8.4-10.2); Carbon Dioxide 30 mmol/L (22-30); Chloride 104 mmol/L (98-107); Glucose 104 mg/dL (74-99); Non-African American GFR(CKD) >90 (>60 ml/min/1.73 sqM); Potassium 4.6 mmol/L (3.5-5.1); Sodium 136 mmol/L (137-145); Total Bilirubin 0.6 mg/dL (0.2-1.3); Total Protein 6.1 g/dL (6.3-8.2)
[2019-04-08 07:04] LABS: Basophils % (A) 0 %; Eosinophils # (A) 0.1 k/uL (0-0.7); Eosinophils % (A) 1 %; HCT 39.4 % (39.0-53.0); HGB 12.8 gm/dL (13.0-17.5); Lymphocytes # (A) 1.2 k/uL (1.0-4.8); Lymphocytes % (A) 24 %; MCH 29.1 pg (25.0-35.0); MCHC 32.5 g/dL (31.0-37.0); MCV 89.4 fL (80.0-100.0); Mean Platelet Volume 10.4; Monocytes # (A) 0.3 k/uL (0-1.0); Monocytes % (A) 6 %; Neutrophils # (A) 3.4 k/uL (1.3-7.7); Neutrophils % (A) 67 %; RDW 13.3 % (11.5-15.5); WBC 5.1 k/uL (3.8-10.6)
[2019-04-08] MEDS: IPRATROPIUM-ALBUTEROL 3 ML NEB INHALATION SCH ×3 (07:46→21:01)
[2019-04-08 08:21] LABS: Platelet Count 94 k/uL (150-450)
[2019-04-08] MEDS: FAMOTIDINE 20 MG TAB PO SCH ×2 (08:39→20:15)
[2019-04-08] MEDS: HYDROmorphone 0.5 MG/0.5 ML SYRINGE IVP PRN ×3 (08:50→18:13)
--- NOTE | 2019-04-08 09:16 | XR ---
EXAMINATION TYPE: XR chest 1V portable DATE OF EXAM: 04/08/2019 COMPARISON: 04/07/2019 HISTORY: Follow-up for right-sided pneumothorax. TECHNIQUE: Single frontal view of the chest is obtained. FINDINGS: The mildly displaced rib 4 and 5 fractures on the right are redemonstrated with improvemen t of the right hemopneumothorax. Subtle right apical visceral pleural line indicating a trace pneumot horax. Scattered right basilar airspace disease. Minimal left basal atelectasis. Cardia mediastinal s ilhouette is unchanged. IMPRESSION: 1. Interval improved trace right hemopneumothorax with adjacent mildly displaced rib 4 and 5 fracture s on the right and involving right lung laceration with surrounding contusions. 2. Minimal left basilar subsegmental atelectasis.
--- NOTE | 2019-04-08 09:52 | P.PN ---
Subjective Progress Note Date: 04/08/19 Principal diagnosis: Right anterior rib fractures fourth and fifth ribs, tiny right apical pneumothorax, and contusion of right lung. Past medical history significant for depression treated with Cymbalta, chronic low back pain, remote history of seizures at age 5 and at age 10, current chronic tobacco dependence, occasional marijuana and alcohol use. The patient presented to the emergency department yesterday 04/07/2019 with complaints of right-sided chest pain. He denies any trauma to his right chest, although his chest x-ray and CTA of his chest showed minimally displaced anterior right fourth and fifth rib fractures with adjacent subcutaneous emphysema, right basilar consolidation, pulmonary contusion/laceration and trace right pneumothorax. He was subsequently admitted to the cardiac stepdown unit for further evaluation and treatment. His chest x-ray this morning shows a trace right hemopneumothorax with adjacent mildly displaced rib 4 and 5 fractures on the right and involving the right lung laceration with surrounding contusions. It also showed minimal left basilar segmental atelectasis. Oxygen saturation are 97% on room air and he is achieving 4677-2527 mL on his incentive spirometry. 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 Remains complaining of right sided chest pain and tenderness with palpation, although reports that his pain is more controlled today. Objective - Vital Signs Vital signs: Vital Signs Temp 97.7 F 04/08/19 07:58 Pulse 60 04/08/19 07:58 Resp 15 04/08/19 07:58 BP 119/65 04/08/19 07:58 Pulse Ox 96 04/08/19 07:48 Intake & Output 04/07/19 04/08/19 04/08/19 18:59 06:59 18:59 Intake Total 1000 Output Total 460 Balance 540 Weight 79.379 kg 80.4 kg Intake: Intake, IV Titration 600 Amount Sodium Chloride 0.9% 1, 600 000 ml @ 75 mls/hr IV . [id number] COUNT INCLUDES THE [facility] Rx#:[id number] Oral 400 Output: Urine 460 Other: # Voids 1 1 - Constitutional Constitutional Comment(s): Tenderness to his right lateral chest wall. General appearance: Present: cooperative, no acute distress - Respiratory Details: Lungs sounds essentially clear throughout, diminished to his right lower lobe. Respirations are symmetrical and nonlabored. No wheezes, crackles or rhonchi. Achieving 7238-9662 mL on his incentive spirometry. Oxygen saturations 97% on room air. - Cardiovascular Details: Regular rhythm and bradycardic rate. S1 and S2 present, negative for S3, gallop or murmur. Remote telemetry showing sinus bradycardia heart rate 58. No edema present. - Gastrointestinal Gastrointestinal Comment(s): Abdomen is soft, nontender and nondistended. Active bowel sounds present in all 4 abdominal quadrants. No guarding or rigidity. No organomegaly appreciated. - Genitourinary Genitourinary Comment(s): Voiding clear yellow urine. - Integumentary Integumentary Comment(s): Skin is warm and dry. No clubbing or cyanosis is present. No rash or abnormal pigmentation is present. - Neurologic Neurologic: Present: CNII-XII intact - Musculoskeletal Musculoskeletal: Present: gait normal, strength equal bilaterally - Psychiatric Psychiatric Comment(s): Flat affect Psychiatric: Present: A&O x's 3, intact judgment & insight - Allied health notes Allied health notes reviewed: nursing - Labs CBC & Chem 7: 04/08/19 06:17 04/08/19 06:17 Labs: Abnormal Lab Results - Last 24 Hours (Table) 04/08/19 04/08/19 Range/Units 06:17 06:17 Hgb 12.8 L (13.0-17.5) gm/dL Plt Count 94 L (150-450) k/uL Sodium 136 L (137-145) mmol/L BUN 21 H (9-20) mg/dL Glucose 104 H (74-99) mg/dL Total Protein 6.1 L (6.3-8.2) g/dL - Imaging and Cardiology Chest x-ray: report reviewed, image reviewed Assessment and Plan Assessment: 1. Right anterior rib fractures fourth and fifth ribs 2. Right pneumothorax, secondary to above 3. Contusion of right lung 4. Chronic lower back pain 5. Remote history of seizures at age 5 and at age 10 6. Current every day smoker 7. Occasional marijuana and alcohol use 8. History of depression, on Cymbalta at home Plan: 1. Continue pain control per current when necessary orders. Discontinue Toradol as his platelet count are 96 today. 2. Encourage use of his incentive spirometry every hour while awake. 3. Encourage ambulation in the hallway as tolerated. Out of bed for all meals. 4. GI and DVT prophylaxis. Pepcid and SCDs. 5. Bronchodilators and pulmonary recommendations per Dr. Pena. 6. No chest tube is warranted at this time as his chest x-ray shows a trace right hemopneumothorax. We will continue to follow the patient on an as-needed basis. Time with Patient: Greater than 30
--- NOTE | 2019-04-08 10:50 | P.GSHP ---
History of Present Illness H&P Date: 04/07/19 Chief Complaint: right sided chest pain CHIEF COMPLAINT: Right sided chest discomfort HISTORY OF PRESENT ILLNESS: 38 year old male who presented to the ER with a chief complaint of right sided chest discomfort. Patient states the pain has been present for a few days and has worsened in severity. He denies any trauma to the chest. PAST MEDICAL HISTORY: See list. PAST SURGICAL HISTORY: See list. SOCIAL HISTORY: No illicit drug use. REVIEW OF SYSTEMS: CONSTITUTIONAL: Denies fever or chills. HEENT: Denies blurred vision, vision changes, or eye pain. Denies hemoptysis CARDIOVASCULAR: Denies chest pain or pressure. RESPIRATORY: No shortness of breath. GASTROINTESTINAL: Refer to [facility] for pertinent findings HEMATOLOGIC: Denies bleeding disorders. GENITOURINARY: Denies any blood in urine. SKIN: Denies pruitis. Denies rash. PHYSICAL EXAM: VITAL SIGNS: Reviewed. GENERAL: Well-developed in no acute distress. HEENT: No sclera icterus. Extraocular movements grossly intact. Moist buccal mucosa. Head is atraumatic, normocephalic. ABDOMEN: Soft. Nondistended. Nontender. CHEST: Tenderness upon palpation of right chest wall. NEUROLOGIC: Alert and oriented. Cranial nerves II through XII grossly intact. LABORATORY DATA: WBC 7.5. Hemoglobin 14.9. Platelet count 115. Sodium 136. Potassium 4.1. BUN 14. Creatinine 0.80. Magnesium 2.0. Bilirubin 1.5. AST 53. ALT 34. Creatinine kinase 781. Troponin negative 1. IMAGING: -Chest x-ray: Minimally displaced anterior right rib fracture 5th with adjacent subcutaneous emphysema and right basilar consolidation, likely pulmonary contusion. Probable trace right apical pneumothorax. -CTA chest: Trace right apical pneumothorax estimated at less than 5%. Right middle lobe pulmonary laceration and multifocal right basilar pulmonary contusions with loculated focus of air at the right lung base with small hemopneumothorax. Minimally displaced anterior right rib 4 and 5 fractures with adjacent subcutaneous emphysema ASSESSMENT: 1. Right sided chest discomfort 2. Trace right apical pneumothorax 3. Right middle lobe pulmonary laceration 4. Right pulmonary contusions 5. Right rib fractures 4th and 5th rib PLAN: -Consult Dr. Evans for medical management -Pulmonary and CTS consulted for evaluation. Await recommendations -Pain control -Incentive spirometry 10 times an hour while awake Nurse practitioner note has been reviewed by physician. Signing provider agrees with the documented findings, assessment, and plan of care. Past Medical History Past Medical History: Seizure Disorder Additional Past Medical History / Comment(s): Lower back pain, occasional bilateral elbow tendonitis, past R knee torn menisus, one seizure at age 5 and another at age 10 yrs. History of Any Multi-Drug Resistant Organisms: None Reported Past Surgical History: Appendectomy, Back Surgery Additional Past Surgical History / Comment(s): Low back surgery, L lower lip b enign mass. Past Anesthesia/Blood Transfusion Reactions: No Reported Reaction Smoking Status: Current every day smoker - Past Family History Father Family Medical History: Cancer, Myocardial Infarction ([place]) Additional Family Medical History / Comment(s): Prostate CA. Father had a [place] at the age of 46yrs. He is living. Mother Family Medical History: No Reported History Additional Family Medical History / Comment(s): Mother is healthy Medications and Allergies Home Medications Medication Instructions Recorded Confirmed Type DULoxetine HCL [Cymbalta] 60 mg PO HS 04/28/18 04/07/19 History Allergies Allergy/AdvReac Type Severity Reaction Status Date / Time No Known Allergies Allergy Verified 04/07/19 11:11 Surgical - Exam Vital Signs Temp Pulse Resp BP Pulse Ox 98.3 F 88 18 138/85 97 04/07/19 07:42 04/07/19 07:42 04/07/19 07:42 04/07/19 07:42 04/07/19 07:42 Results - Labs 04/08/19 06:17 04/08/19 06:17 Abnormal Lab Results - Last 24 Hours (Table) 04/07/19 04/07/19 04/07/19 Range/Units 08:06 08:06 08:06 Plt Count 115 L (150-450) k/uL D-Dimer 0.89 H (<0.60) mg/L FEU Sodium 136 L (137-145) mmol/L Glucose 115 H (74-99) mg/dL Total Bilirubin 1.5 H (0.2-1.3) mg/dL Creatine Kinase 781 H (55-170) U/L Diabetes panel 04/07/19 Range/Units 08:06 Sodium 136 L (137-145) mmol/L Potassium 4.1 (3.5-5.1) mmol/L Chloride 101 (98-107) mmol/L Carbon Dioxide 29 (22-30) mmol/L BUN 14 (9-20) mg/dL Creatinine 0.80 (0.66-1.25) mg/dL Glucose 115 H (74-99) mg/dL Calcium 9.5 (8.4-10.2) mg/dL AST 53 (17-59) U/L ALT 34 (4-49) U/L Alkaline Phosphatase 87 (38-126) U/L Total Protein 7.8 (6.3-8.2) g/dL Albumin 4.7 (3.5-5.0) g/dL Calcium panel 04/07/19 Range/Units 08:06 Calcium 9.5 (8.4-10.2) mg/dL Albumin 4.7 (3.5-5.0) g/dL Pituitary panel 04/07/19 Range/Units 08:06 Sodium 136 L (137-145) mmol/L Potassium 4.1 (3.5-5.1) mmol/L Chloride 101 (98-107) mmol/L Carbon Dioxide 29 (22-30) mmol/L BUN 14 (9-20) mg/dL Creatinine 0.80 (0.66-1.25) mg/dL Glucose 115 H (74-99) mg/dL Calcium 9.5 (8.4-10.2) mg/dL Adrenal panel 04/07/19 Range/Units 08:06 Sodium 136 L (137-145) mmol/L Potassium 4.1 (3.5-5.1) mmol/L Chloride 101 (98-107) mmol/L Carbon Dioxide 29 (22-30) mmol/L BUN 14 (9-20) mg/dL Creatinine 0.80 (0.66-1.25) mg/dL Glucose 115 H (74-99) mg/dL Calcium 9.5 (8.4-10.2) mg/dL Total Bilirubin 1.5 H (0.2-1.3) mg/dL AST 53 (17-59) U/L ALT 34 (4-49) U/L Alkaline Phosphatase 87 (38-126) U/L Total Protein 7.8 (6.3-8.2) g/dL Albumin 4.7 (3.5-5.0) g/dL
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
--- NOTE | 2019-04-08 13:17 | P.PN ---
Subjective Progress Note Date: 04/08/19 CHIEF COMPLAINT: Right sided chest discomfort HISTORY OF PRESENT ILLNESS: patient seen and examined at the bedside with Dr. Valderrama. Patient reports his pain is about the same as yesterday. He is currently receiving IV narcotics. Toradol has been discontinued secondary to decreased platelet count. Chest x-ray today reveals interval improved trace right hemopneumothorax. Using IS and able to pull 1250-1500cc. PHYSICAL EXAM: VITAL SIGNS: Reviewed. GENERAL: Well-developed in no acute distress. HEENT: No sclera icterus. Extraocular movements grossly intact. Moist buccal mucosa. Head is atraumatic, normocephalic. ABDOMEN: Soft. Nondistended. Nontender. CHEST: Tenderness upon palpation of right chest wall. NEUROLOGIC: Alert and oriented. Cranial nerves II through XII grossly intact. ASSESSMENT: 1. Right sided chest discomfort 2. Trace right apical pneumothorax 3. Right middle lobe pulmonary laceration 4. Right pulmonary contusions 5. Right rib fractures 4th and 5th rib PLAN: -Pulmonary and CTS on consult. Appreciate recommendations -Pain control. Add [place] PRN. -Incentive spirometry 10 times an hour while awake -May transfer to medical floor -Anticipate discharge home tomorrow Nurse practitioner note has been reviewed by physician. Signing provider agrees with the documented findings, assessment, and plan of care. Objective - Vital Signs Vital signs: Vital Signs Temp 98.8 F 04/08/19 11:40 Pulse 64 04/08/19 12:32 Resp 14 04/08/19 11:40 BP 106/58 04/08/19 11:40 Pulse Ox 98 04/08/19 11:40 Intake & Output 04/07/19 04/08/19 04/08/19 18:59 06:59 18:59 Intake Total 1000 Output Total 460 Balance 540 Weight 79.379 kg 80.4 kg Intake: Intake, IV Titration 600 Amount Sodium Chloride 0.9% 1, 600 000 ml @ 75 mls/hr IV . [id number] [facility] Rx#:[id number] Oral 400 Output: Urine 460 Other: # Voids 1 1 0 # Bowel Movements 0 - Labs CBC & Chem 7: 04/08/19 06:17 04/08/19 06:17 Labs: Abnormal Lab Results - Last 24 Hours (Table) 04/08/19 04/08/19 Range/Units 06:17 06:17 Hgb 12.8 L (13.0-17.5) gm/dL Plt Count 94 L (150-450) k/uL Sodium 136 L (137-145) mmol/L BUN 21 H (9-20) mg/dL Glucose 104 H (74-99) mg/dL Total Protein 6.1 L (6.3-8.2) g/dL
[2019-04-08] MEDS: SODIUM CHLORIDE 0.9% 1,000 ML IV SCH (14:24)
[2019-04-08] MEDS: HYDROcodone/APAP 5-325MG 1 EACH TAB PO PRN (16:24)
[2019-04-08] MEDS: DULoxetine HCL 60 MG CAPSULE.DR PO SCH (20:15)
[2019-04-08] MEDS: HYDROmorphone 1 MG/ML 1 ML SYRINGE IVP PRN (21:30)
--- NOTE | 2019-04-08 22:14 | P.CONS ---
History of Present Illness - Reason for Consult Consult date: 04/08/19 Medical management - Chief Complaint History of depression with rib fracture. - History of Present Illness The patient is here essentially because chest contusion with rib fracture. The patient has an underlying history of depression. Review of Systems Constitutional: Denies chills, Denies fever Eyes: denies blurred vision, denies pain Ears, nose, mouth and throat: Denies headache, Denies sore throat Cardiovascular: Denies chest pain, Denies shortness of breath Respiratory: Reports pain, Denies cough Gastrointestinal: Denies abdominal pain, Denies diarrhea, Denies nausea, Denies vomiting Musculoskeletal: Denies myalgias Integumentary: Denies pruritus, Denies rash Past Medical History Past Medical History: Seizure Disorder Additional Past Medical History / Comment(s): Lower back pain, occasional bilateral elbow tendonitis, past R knee torn menisus, one seizure at age 5 and another at age 10 yrs. History of Any Multi-Drug Resistant Organisms: None Reported Past Surgical History: Appendectomy, Back Surgery Additional Past Surgical History / Comment(s): Low back surgery, L lower lip benign mass. Past Anesthesia/Blood Transfusion Reactions: No Reported Reaction Smoking Status: Current every day smoker - Past Family History Father Family Medical History: Cancer, Myocardial Infarction ([place]) Additional Family Medical History / Comment(s): Prostate CA. Father had a [place] at the age of 46yrs. He is living. Mother Family Medical History: No Reported History Additional Family Medical History / Comment(s): Mother is healthy Medications and Allergies Home Medications Medication Instructions Recorded Confirmed Type DULoxetine HCL [Cymbalta] 60 mg PO HS 04/28/18 04/07/19 History Hydrocodone/Acetaminophen [[place] 1 tab PO Q6HR PRN #10 tab 04/08/19 Rx 5-325] Ibuprofen [Motrin] 600 mg PO Q8HR PRN #30 tab 04/08/19 Rx Allergies Allergy/AdvReac Type Severity Reaction Status Date / Time No Known Allergies Allergy Verified 04/07/19 11:11 Physical Exam Vitals: Vital Signs Temp Pulse Pulse Pulse Resp BP Pulse Ox 04/08/19 21:15 57 L 04/08/19 21:01 57 L 04/08/19 18:10 98.4 F 56 L 16 118/63 99 04/08/19 16:29 98.2 F 63 16 112/64 99 04/08/19 16:00 14 04/08/19 12:32 64 04/08/19 12:22 60 04/08/19 11:40 98.8 F 14 106/58 98 04/08/19 07:58 97.7 F 60 15 119/65 04/08/19 07:57 64 04/08/19 07:48 60 96 04/08/19 03:54 97.8 F 70 18 111/72 97 04/07/19 23:28 97.7 F 63 18 113/72 95 Intake and Output 04/08/19 04/08/19 04/08/19 06:59 14:59 22:59 Intake Total 600 Output Total 460 Balance 140 Intake: Intake, IV Titration 600 Amount Sodium Chloride 0.9% 1, 600 000 ml @ 75 mls/hr IV . [id number] [facility] Rx#:[id number] Output: Urine 460 Other: # Voids 1 1 # Bowel Movements 0 Weight 80.4 kg - Constitutional General appearance: no acute distress - EENT Eyes: EOMI - Neck Neck: no lymphadenopathy - Respiratory Respiratory: bilateral: CTA - Cardiovascular Rhythm: regular Heart sounds: normal: S1, S2 Abnormal Heart Sounds: no S3 Gallop - Gastrointestinal General gastrointestinal: soft, no tenderness - Neurologic Neurologic: CNII-XII intact - Psychiatric Psychiatric: A&O x's 3, appropriate affect Results CBC & Chem 7: 04/08/19 06:17 04/08/19 06:17 Labs: Abnormal Lab Results - Last 24 Hours (Table) 04/08/19 04/08/19 Range/Units 06:17 06:17 Hgb 12.8 L (13.0-17.5) gm/dL Plt Count 94 L (150-450) k/uL Sodium 136 L (137-145) mmol/L BUN 21 H (9-20) mg/dL Glucose 104 H (74-99) mg/dL Total Protein 6.1 L (6.3-8.2) g/dL Assessment and Plan (1) Contusion of lung Current Visit: Yes Status: Acute Code(s): S27.329A - CONTUSION OF LUNG, UNSPECIFIED, INITIAL ENCOUNTER SNOMED Code(s): 839185030 (2) Rib fractures Current Visit: Yes Status: Acute Code(s): S22.39XA - FRACTURE OF ONE RIB, UNSP SIDE, INIT FOR CLOS FX SNOMED Code(s): 56237940 (3) Depression Current Visit: No Status: Acute Code(s): F32.9 - MAJOR DEPRESSIVE DISORDER, SINGLE EPISODE, UNSPECIFIED SNOMED Code(s): 44860923 Plan: Reconcile home medications. Continue trauma protocol. We will go ahead and Anticipate discharge in the next 24 hours Time with Patient: Greater than 30
[2019-04-09] MEDS: SODIUM CHLORIDE 0.9% 1,000 ML IV SCH (02:20)
[2019-04-09] MEDS: HYDROmorphone 1 MG/ML 1 ML SYRINGE IVP PRN (02:21)
[2019-04-09] MEDS: FAMOTIDINE 20 MG TAB PO SCH (07:06)
[2019-04-09] MEDS: HYDROcodone/APAP 5-325MG 1 EACH TAB PO PRN (07:06)
[2019-04-09] MEDS: IPRATROPIUM-ALBUTEROL 3 ML NEB INHALATION SCH (07:10)
[2019-04-09 07:20] VITALS: RESP 16
[2019-04-09 07:33] VITALS: BP 111/70; PULSE 52; TEMP 97.8
--- NOTE | 2019-04-09 08:20 | P.PN ---
Subjective Progress Note Date: 04/09/19 Principal diagnosis: Chest contusion with multiple rib fractures The patient is admitted for slight pneumothorax with chest contusion/pulmonary contusion and rib fractures. The patient has no recollection of trauma. No fever or chills stated. Pain is not appropriate controlled as far as he is concerned. Objective - Vital Signs Vital signs: Vital Signs Temp 97.8 F 04/09/19 07:00 Pulse 60 04/09/19 07:19 Resp 16 04/09/19 07:19 BP 111/70 04/09/19 07:00 Pulse Ox 97 04/09/19 07:10 Intake & Output 04/08/19 04/09/19 04/09/19 18:59 06:59 18:59 Other: # Voids 1 3 # Bowel Movements 0 - Constitutional General appearance: Present: average body habitus - EENT Eyes: Absent: abnormal pupil - Cardiovascular Rhythm: regular Heart sounds: normal: S1, S2 Abnormal Heart Sounds: Absent: S3 Gallop - Gastrointestinal General gastrointestinal: Present: soft. Absent: tenderness - Integumentary Integumentary: Absent: cellulitis, jaundiced - Labs CBC & Chem 7: 04/08/19 06:17 04/08/19 06:17 Labs: Abnormal Lab Results - Last 24 Hours (Table) 04/08/19 Range/Units 06:17 Hgb 12.8 L (13.0-17.5) gm/dL Plt Count 94 L (150-450) k/uL Assessment and Plan (1) Contusion of lung Current Visit: Yes Status: Acute Code(s): S27.329A - CONTUSION OF LUNG, UNSPECIFIED, INITIAL ENCOUNTER SNOMED Code(s): 511728033 (2) Rib fractures Current Visit: Yes Status: Acute Code(s): S22.39XA - FRACTURE OF ONE RIB, UNSP SIDE, INIT FOR CLOS FX SNOMED Code(s): 20184071 (3) Depression Current Visit: No Status: Acute Code(s): F32.9 - MAJOR DEPRESSIVE DISORDER, SINGLE EPISODE, UNSPECIFIED SNOMED Code(s): 45190108 Plan: Continue appropriate pain control. Follow-up with me in 3-5 days. Check serial x-ray for resolution of pneumothorax. Otherwise, pain control. See orders otherwise.
[2019-04-09] MEDS ORDERED: IBUPROFEN 600 MG TAB PO SCH (09:00)
--- NOTE | 2019-04-09 11:13 | P.DS ---
Providers Date of admission: 04/07/19 10:41 Expected date of discharge: 04/09/19 Attending physician: Jian Valderrama Consults: 04/07/19 10:41 Consult Physician Routine Consulting Provider: Zeyad Pena Consult Reason/Comments: Pulmonary contusion, hemopneumothorax, rib fracture Do you want consulting provider notified?: Yes 04/07/19 10:44 Consult Physician Urgent Consulting Provider: Mustapha Nelson Consult Reason/Comments: Pulmonary contusion, rib fractures, hemopneumothorax Do you want consulting provider notified?: Yes 04/07/19 13:20 Consult Physician Routine Consulting Provider: Kvng Evans Consult Reason/Comments: medical management Do you want consulting provider notified?: Yes Primary care physician: Kvng Evans Hospital Course: 38 year old male who presented to the ER with a chief complaint of right sided chest discomfort. Patient states the pain has been present for a few days and has worsened in severity. He denies any trauma to the chest. Workup in the ER included: Chest x-ray: Minimally displaced anterior right rib fracture 5th with adjacent subcutaneous emphysema and right basilar consolidation, likely pulmonary contusion. Probable trace right apical pneumothorax. CTA chest: Trace right apical pneumothorax estimated at less than 5. Right middle lobe pulmonary laceration and multifocal right basilar pulmonary contusions with loculated focus of air at the right lung base with small hemopneumothorax. Minimally displaced anterior right rib 4 and 5 fractures with adjacent subcutaneous emphysema Patient was evaluated by cardiothoracic surgery and pulmonary during hospitalization. No intervention was recommended. The patient's pain is controlled on oral medications. He is stable for DC home today per Dr. Valderrama. Please see EMR for further hospital course details. Discharge Diagnosis: 1. Right sided chest discomfort 2. Trace right apical pneumothorax 3. Right middle lobe pulmonary laceration 4. Right pulmonary contusions 5. Right rib fractures 4th and 5th rib Nurse practitioner note has been reviewed by physician. Signing provider agrees with the documented findings, assessment, and plan of care. Patient Condition at Discharge: Stable Plan - Discharge Summary Discharge Rx Participant: No New Discharge Prescriptions: New Ibuprofen [Motrin] 600 mg PO Q8HR PRN #30 tab PRN Reason: Pain Hydrocodone/Acetaminophen [Croton 5-325] 1 tab PO Q6HR PRN #10 tab PRN Reason: Pain No Action DULoxetine HCL [Cymbalta] 60 mg PO HS Discharge Medication List DULoxetine HCL [Cymbalta] 60 mg PO HS 04/28/18 [History] Hydrocodone/Acetaminophen [Croton 5-325] 1 tab PO Q6HR PRN #10 tab 04/08/19 [Rx] Ibuprofen [Motrin] 600 mg PO Q8HR PRN #30 tab 04/08/19 [Rx] Follow up Appointment(s)/Referral(s): Kvng Evans MD [Primary Care Provider] - 04/11/19 10:20 am Zeyad Pena DO [Doctor of Osteopathic Medicine] - 04/16/19 1:30 pm Patient Instructions/Handouts: Spontaneous Pneumothorax (DC), Spontaneous Pneumothorax (GEN), Traumatic Pneumothorax (GEN), Rib Fracture (ED), Rib Fracture (DC), Rib Fracture (GEN)
== END 2019-04-09 11:56 | disposition home or self-care (01) | DRG 183 ==
LOC: EC 07:33 → 3SCARD 10:41 → 4SSUR 04-08 18:04
PROVIDERS: ADMIT Surgery; ATTEND Surgery
DX: S22.41XA Multiple fractures of ribs, right side, initial encounter for closed fracture (principal); S27.331A Laceration of lung, unilateral, initial encounter; J94.2 Hemothorax; S27.321A Contusion of lung, unilateral, initial encounter; F17.210 Nicotine dependence, cigarettes, uncomplicated; F17.200 Nicotine dependence, unspecified, uncomplicated; F32.9 Major depressive disorder, single episode, unspecified; G40.909 Epilepsy, unspecified, not intractable, without status epilepticus; G89.29 Other chronic pain; I25.2 Old myocardial infarction; J98.2 Interstitial emphysema; Z80.42 Family history of malignant neoplasm of prostate; Z82.49 Family history of ischemic heart disease and other diseases of the circulatory system; Z90.49 Acquired absence of other specified parts of digestive tract; M54.9 Dorsalgia, unspecified; Z79.899 Other long term (current) drug therapy
CPT/HCPCS: 36415; 71045; 71046; 71275; 80053; 82550; 83735; 84484; 85025; 85379; 85610; 85730; 94640; 94760; 96361; 96374; 96375; 96376; 99285

== ENCOUNTER → 2019-04-11 | Outpatient (CLI) | payer SELFPAY ==
--- NOTE | 2019-04-11 12:48 | XR ---
EXAMINATION TYPE: XR chest 2V DATE OF EXAM: 04/11/2019 COMPARISON: 04/08/2019 INDICATION: Cough TECHNIQUE: Frontal and lateral views of the chest are obtained. FINDINGS: The heart size is normal. The pulmonary vasculature is normal. Mild infiltrate is in the periphery of the right mid to lower lung field. There is blunting of the ri ght costophrenic angle.. There is a history of recent rib fracture. Displaced rib fractures not iden tified on this exam. No pneumothorax is evident. IMPRESSION: 1. Persistent infiltrate within the right lung and at the costophrenic angle. Correlate for pneumonia . Continued follow-up is recommended.
== END | disposition home or self-care (01) ==
LOC: RADXRMAIN 11:36
PROVIDERS: ATTEND Family Medicine
DX: R91.8 Other nonspecific abnormal finding of lung field (principal)
CPT/HCPCS: 71046